=== PATIENT | male | born 1945 | race Caucasian/White ===

== ENCOUNTER 2022-04-22 21:22 | Inpatient (IN) | payer OTHER, SELFPAY ==
--- NOTE | ~2022-04-22 | XR_ITS ---
EXAMINATION: XR fl guid NG/feed tube insert DATE: 04/28/2022 14:04 INDICATION: Nasogastric tube placement required for feeding TECHNIQUE: Fluoroscopy was utilized to aid in placement of a nasogastric tube. A total of 6 fluorosco pic images recorded. The amount of fluoroscopy time used during this procedure was 3.9 minutes. 5 mm Omnipaque 350 was injected into the tube followed by 10 mL sterile saline flush with fluoroscopy conf irming appropriate positioning of the tube. The tube was then fixed to the nares by the patient's nikkie se. COMPARISON: CT dated 04/22/2022 FINDINGS: Nasogastric tube extends below the left hemidiaphragm across what appears to be a likely gastric bypa ss with the tip and injected contrast within small bowel loops in the left upper quadrant. IMPRESSION: 1. Successful placement of a nasogastric tube with tip below the left hemidiaphragm in a loop of smal l bowel likely having traversed the gastrojejunal anastomosis. Correlate with surgical history. Reviewed, dictated and finalized at location A. GER INSIDE IMPRESSION: 1. Successful placement of a nasogastric tube with tip below the left hemidiaph ragm in a loop of small bowel likely having traversed the gastrojejunal anastom osis. Correlate with surgical history.
--- NOTE | ~2022-04-22 | XR_ITS ---
EXAMINATION: XR chest 1V Exam Date/Time: 04/22/2022 22:00 MANAGER CRISIS HISTORY: fall Comparison: None available. RESULT: Patient is rotated to the left. Lines, tubes, and devices: Surgical clips over the GE junction. Lungs and pleura: No focal consolidation, pneumothorax, or large effusion. Calcified right lung gran ulomas. Cardiomediastinal silhouette: Stable. Calcified hilar nodes. Other: No acute osseous or upper abdominal finding. IMPRESSION: No acute cardiopulmonary process. Reviewed, dictated and finalized at location K. GER CRISIS
--- NOTE | ~2022-04-22 | CT_ITS ---
EXAMINATION: CT brain wo con DATE: 04/22/2022 22:25 INDICATION: fall . TECHNIQUE: Computed tomography (CT) of the head was performed without intravenous contrast. The mA wa s adjusted according to patient size. Iterative reconstruction technique was employed. The dose-lengt h product was 1513.33 mGy-cm. COMPARISON: None FINDINGS: No acute intracranial hemorrhage or extra-axial fluid collection. No hydrocephalus, mass, or herniation. No acute ischemic infarct. Unremarkable dural venous sinus attenuation. No acute osseous abnormality. The aerated spaces are clear. Mild atrophy and chronic white matter change. Atherosclerotic intracranial calcification. Tiny bilate ral lacunar infarcts. Bilateral lens replacements. IMPRESSION: No acute intracranial process. Reviewed, dictated and finalized at location K. CAL LABORATORY MANAGER
--- NOTE | ~2022-04-22 | CT_ITS ---
EXAMINATION: CT abdomen pelvis w con DATE: 04/22/2022 23:57 INDICATION: UTI. Weakness. TECHNIQUE: Computed tomography (CT) of the abdomen and pelvis was performed with 100 cc Omnipaque 350 intravenous contrast. The dose-length product was 348.13 mGy-cm. COMPARISON: CT dated 03/24/2013 FINDINGS: Lung bases are unremarkable. No significant pleural or pericardial effusion. Heart size nor mal. There is fluid-filled hyperemic bowel throughout the abdomen suspicious for enterocolitis. Heart size normal. Moderate atherosclerosis of the aorta. No aneurysm. No significant lymphadenopathy. Gal lbladder is surgically absent. There is expected prominence of the bile ducts. There are punctate hyp ovascular lesions in the dome of the liver, too small to characterize, although likely benign. The sp trav, pancreas, adrenal glands are unremarkable. There are bilateral renal cysts. No evidence for bow el obstruction. There radiation therapy implant seeds in the prostate bed. Bladder is not well disten ded for evaluation. No significant free air or free fluid. Status post hysterectomy. There is severe lumbar spondylosis. There is osteoarthritis of the hips. No focal lytic or blastic lesions. There is levoscoliosis of the lumbar spine. IMPRESSION: 1. Fluid-filled hyperemic bowel loops without obstruction. Correlate for enterocolitis. Reviewed, dictated and finalized at location A. CAL DESIGN ENGINEER IMPRESSION: 1. Fluid-filled hyperemic bowel loops without obstruction. Correlate for entero colitis.
--- NOTE | ~2022-04-22 | CT_ITS ---
EXAMINATION: CT facial & cervical spine wo DATE: 04/22/2022 22:26 INDICATION: fall TECHNIQUE: Computed tomography (CT) of the maxillofacial region and cervical spine was performed with out intravenous contrast. Automated exposure control and iterative reconstruction technique were empl oyed. The dose-length product was 119.35 mGy-cm. COMPARISON: None FINDINGS: Examination is limited by considerable difficulty positioning the patient, resulting and nonstandard planes of image acquisition. Multiple attempts were required to reformat images that better approxima te standard sagittal and coronal planes. CERVICAL: Vertebral Body Alignment: Intact. Craniocervical and atlantoaxial alignment: Mild degenerative change. Alignment intact. Osseous structures/fracture: No evidence of a lytic or blastic process in the visualized spine. No e vidence of acute fracture. Cervical soft tissues: The paraspinal soft tissues planes are maintained. Degenerative changes: Degenerative changes, without severe neural foraminal or central canal narrowin g. FACE: Soft Tissues: Question of right frontal and periorbital soft tissue swelling. Facial bones: No acute fracture. No lytic or blastic process. Eyes: The globes are intact. The soft tissue planes of the orbits are maintained. Bilateral lens re placements. Paranasal Sinuses: Small left frontal air-fluid level. Scattered minimal paranasal sinus mucosal thi ckening.. Foreign Bodies: No radiopaque foreign bodies. Other Findings: None. IMPRESSION: Limited examination, as detailed above. No definite acute fracture or traumatic malalignment in the c ervical spine. No definite acute facial bone fracture. Possible acute left frontal sinusitis versus m ucosal hemorrhage. Reviewed, dictated and finalized at location K. CTOR ECONOMIC IMPRESSION: Limited examination, as detailed above. No definite acute fracture or traumatic malalignment in the cervical spine. No definite acute facial bone fracture. Po ssible acute left frontal sinusitis versus mucosal hemorrhage.
--- NOTE | ~2022-04-22 | XR_ITS ---
XR chest 1V 04/27/2022 15:38 Indication: Aspiration Procedure: AP and lateral views of the chest Comparison: 04/22/2022 Findings: There is emphysema. There is bibasilar airspace consolidation, consistent with pneumonia. N o significant effusion. No pneumothorax. Cardiomegaly. There is atherosclerosis. There is a densely c alcified mediastinal lymph nodes, consistent with chronic granulomatous disease. Impression: 1: Interval development of bibasilar airspace disease, compatible with pneumonia. Reviewed, dictated and finalized at location A. MAKER Impression: 1: Interval development of bibasilar airspace disease, compatible with pneumoni a.
--- NOTE | ~2022-04-22 | XR_ITS ---
EXAM: XR shoulder RT min 2V DATE: 04/22/2022 22:39 HISTORY: right shoulder pain, fall . COMPARISON: 03/04/2013. FINDINGS: Normal mineralization. No fracture or dislocation. No lytic or blastic lesion. Linear ossi fied/calcified body anterior to the joint related to adjacent soft tissues or capsular tissue and not a fracture fragment. Moderate clavicular joint and glenohumeral joint osteoarthritis. Likely rotator cuff pathology. No erosion or periosteal change. Calcified hilar lymph nodes. IMPRESSION: No acute osseous finding in the right shoulder. Reviewed, dictated and finalized at location K. AL ARM SAW OPERATOR
--- NOTE | ~2022-04-22 | XR_ITS ---
EXAMINATION: XR chest 1V portable DATE: 05/04/2022 06:07 INDICATION: Pneumonia. TECHNIQUE: A single frontal view of the chest was obtained on 2 radiographs. COMPARISON: Chest single view 05/01/2022, CT abdomen and pelvis 04/22/2022 FINDINGS: A calcified right lung nodule and calcified right hilar and mediastinal lymph nodes are con sistent with old granulomatous disease. There are airspace opacities in left lower lobe. There is a t iny left apical pneumothorax. No pleural effusion. The heart size is normal. The nasogastric tube tip is beyond the inferior margin of the radiograph, but at least to the stomach. There are surgical cli ps in the area of the gastroesophageal junction. IMPRESSION: 1. New tiny left apical pneumothorax. 2. Stable airspace opacities in left lower lobe, consistent with pneumonia. Reviewed, dictated and finalized at location A. NALISM PROFESSOR
--- NOTE | ~2022-04-22 | XR_ITS ---
EXAM: XR hip BI 2V w AP pelvis DATE: 04/22/2022 22:39 HISTORY: falL APROXM. 2 DAYS AGO. ONTO RIGHT SIDE FOUND ON FLOOR . COMPARISON: None available. FINDINGS: Decreased mineralization. Lumbar degenerative disc disease Mild bilateral hip osteoarthrit is Mineralization. No fracture or dislocation. No lytic or blastic lesion. No erosion or periosteal c hange. Pelvic phleboliths. Multiple surgical clips over the lower pelvis. Vascular calcifications. IMPRESSION: No acute osseous finding in the pelvis or bilateral hips. Reviewed, dictated and finalized at location K. NICAL CUSTOMER SUPPORT SPECIALIST
--- NOTE | ~2022-04-22 | XR_ITS ---
EXAMINATION: XR chest 1V portable DATE: 05/05/2022 06:34 INDICATION: Shortness of breath. TECHNIQUE: A single frontal view of the chest was obtained on 2 radiographs. COMPARISON: Chest single view 05/04/2022, chest CT 05/04/2022 FINDINGS: A calcified right lung nodule and calcified mediastinal lymph nodes are consistent with old granulomatous disease. There are airspace opacities in left lower lobe. There is a small left hydrop neumothorax. The heart size is normal. The nasogastric tube tip is beyond the inferior margin of the radiograph, but at least to the stomach. IMPRESSION: 1. Stable airspace opacities in left lower lobe, consistent with pneumonia. 2. Stable small left hydropneumothorax. Reviewed, dictated and finalized at location A. TERINTELLIGENCE/HUMINT SPECIALIST
--- NOTE | ~2022-04-22 | MR_ITS ---
EXAMINATION: MR brain/brain stem wo/w con DATE: 04/24/2022 08:08 INDICATION: Status post fall. TECHNIQUE: Magnetic resonance imaging (MRI) of the brain and brainstem was performed without intraven ous contrast. Sequences included sagittal and axial T1-weighted SE, axial diffusion-weighted FS SE, a xial T2*-weighted GRE, axial T2-weighted FLAIR Propeller, and axial T2-weighted Propeller. Apparent d iffusion coefficient (ADC) maps were created. Right upper extremity weakness. COMPARISON: CT brain dated 04/22/2022. FINDINGS: No acute infarction or intracranial hemorrhage. There are scattered moderate periventricula r and subcortical white matter changes, most likely related to small vessel ischemic disease (microan giopathy). There is a chronic right lacunar infarction of the caudate nucleus. There is a chronic lef t thalamic infarct. No abnormal contrast enhancement. No focal mass or mass effect. Paranasal sinuses are unremarkable. Structures of the posterior fossa including the seventh/8th cranial nerve complexe s are normal. Midline sagittal images are unremarkable. IMPRESSION: 1. No acute intracranial abnormality. 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 3: Chronic age-related findings appear Reviewed, dictated and finalized at location A. ING MANAGER
--- NOTE | ~2022-04-22 | CT_ITS ---
EXAMINATION: CT abdomen pelvis wo con DATE: 05/05/2022 08:28 INDICATION: Abdominal pain. TECHNIQUE: Computed tomography (CT) of the abdomen and pelvis was performed without intravenous contr ast. Automated exposure control and iterative reconstruction technique were employed. The dose-length product was 498.95 mGy-cm. COMPARISON: CT abdomen and pelvis 04/22/2022, chest CT 05/04/2022 FINDINGS: There is a small left hydropneumothorax. There are airspace and interstitial opacities in l eft lower lobe with volume loss. There are dependent groundglass opacities in left upper lobe. The he art size is normal. There are coronary artery calcifications. No pericardial effusion. The liver is n ormal. There are changes of cholecystectomy. Calcifications in the spleen are consistent with old gra nulomatous disease. The pancreas and adrenal glands are normal. There are cysts in the kidneys measur ing up to 1.7 cm on the left. There is a 5 mm stone in left kidney. The nasogastric tube tip is in th e stomach. There are brachytherapy seeds in the prostate. There are no dilated loops of bowel. There is an 11 mm stone or cluster of stones in the bladder. There are no pathologically enlarged lymph nod es. There is no free intraperitoneal fluid. There are bridging endplate osteophytes at multiple level s in the spine, consistent with diffuse idiopathic skeletal hyperostosis (DISH). There is severe lumb ar spondylosis. IMPRESSION: 1. Small left hydropneumothorax, stable from 05/04/2022. 2. Airspace and groundglass opacities in left lower lobe and dependent groundglass opacities in left upper lobe with volume loss, likely a combination of atelectasis and pneumonia, stable from 2. 3. Bladder stone(s). Reviewed, dictated and finalized at location A. DENTIAL SALES CONSULTANT IMPRESSION: 1. Small left hydropneumothorax, stable from 05/04/2022. 2. Airspace and groundglass opacities in left lower lobe and dependent groundgl ass opacities in left upper lobe with volume loss, likely a combination of atel ectasis and pneumonia, stable from 05/04/2022. 3. Bladder stone(s).
--- NOTE | ~2022-04-22 | XR_ITS ---
EXAMINATION: XR chest 1V portable DATE: 05/01/2022 22:47 INDICATION: Fever. Pneumonia. TECHNIQUE: A single frontal view of the chest was obtained. COMPARISON: Chest single view 04/27/2022, CT abdomen and pelvis 04/22/2022 FINDINGS: The patient is rotated to his left. A calcified right lung nodule and calcified mediastinal lymph nodes are consistent with old granulomatous disease. There are airspace opacities in left lowe r lobe. No pleural effusion or pneumothorax. The heart size is normal. The nasogastric tube tip is be yond the inferior margin of the radiograph, but at least to the stomach. There are surgical clips elaine und the gastroesophageal junction. IMPRESSION: 1. Stable airspace opacities in left lower lobe, consistent with pneumonia. Reviewed, dictated and finalized at location A. T INSPECTOR
--- NOTE | ~2022-04-22 | CT_ITS ---
CT Scan of the Chest without Contrast: Clinical Indication: Pneumothorax Technique: Contiguous sections were acquired throughout the chest without intravenous contrast. Dose reduction technique was used on this scan by utilizing automated exposure control and iterative recon struction technique. The dose-length product (DLP) was 176.85 mGy-cm. Findings: Calcified mediastinal and right hilar lymph nodes are present. Coronary artery calcifications are pre sent. No aortic aneurysm. No pericardial effusion. Small left hydropneumothorax is present. There is extensive consolidation of the left lower lobe with groundglass opacity in the inferior portions of the left upper lobe. There is minimal dependent grou ndglass opacity in the right lung, which is relatively hyperinflated. Images through the upper abdomen reveal 6 mm nonobstructing left renal stone. Impression: Small left hydropneumothorax. Extensive consolidation left lower lobe with groundglass opacity in the dependent left upper lobe. Fi ndings likely represent atelectasis. Correlate for pneumonia. Minimal atelectatic changes in the right lung. Reviewed, dictated and finalized at location [] OF MARKETING Impression: Small left hydropneumothorax. Extensive consolidation left lower lobe with groundglass opacity in the depende nt left upper lobe. Findings likely represent atelectasis. Correlate for pneumo beau. Minimal atelectatic changes in the right lung.
--- NOTE | ~2022-04-22 | XR_ITS ---
MODIFIED ESOPHAGRAM HISTORY: Dysphagia. Parkinson's disease. TECHNIQUE: Modified barium esophagram was performed on 04/27/2022. I administered fluoroscopy and perf ormed the exam with speech pathologist. Patient was seated for lateral fluoroscopic imaging for chelo stion of thin liquids, pudding, solids and quantified amounts, followed by thin liquids in uncontroll ed amounts. This was recorded on tape. A single fluoroscopic spot image was also recorded. The DAP fo r this procedure was 1.21 Gycm2. The amount of fluoroscopy time used during this procedure was 2.3 mi nutes. FINDINGS: Oral stage: Reduced labial seal/extension and reduced lingual movement. Pharyngeal stage: There is reduced laryngeal elevation and adduction, tongue base retraction and phar yngeal squeeze. There is both vallecular, pharyngeal wall and piriform sinus residue. There is laryng eal penetration and aspiration both during the swallowing following the swallow with backflow from th e pharynx. Cervical/esophageal stage: Adequate function. IMPRESSION: Oral and pharyngeal dysphagia with aspiration. Please correlate with speech pathologist findings and specific feeding recommendations. Reviewed, dictated and finalized at location A. SIZER IMPRESSION: Oral and pharyngeal dysphagia with aspiration. Please correlate [facility] speech pathologist findings and specific feeding recommendations.
--- NOTE | ~2022-04-22 | CT_ITS ---
EXAMINATION: CT brain wo/w con DATE: 04/27/2022 15:32 INDICATION: Lethargy and confusion. TECHNIQUE: Computed tomography (CT) of the head was performed without and with 100 cc Omnipaque 350 i ntravenous contrast. The dose-length product was 1362.00 mGy-cm. Automated exposure control and itera tive reconstruction technique were employed. COMPARISON: CT dated 04/22/2022 FINDINGS: Generalized atrophy. There are scattered mild periventricular and subcortical white matter changes, most likely related to small vessel ischemic disease (microangiopathy). Study extremely limi den by motion artifact. Small chronic bilateral lacunar infarctions. No abnormal contrast enhancement . Midline sagittal images are unremarkable. IMPRESSION: 1. No acute intracranial abnormality. 2: Small chronic lacunar infarctions. 3: Chronic age-related findings. Reviewed, dictated and finalized at location A. PPER SOFT PLASTIC
[2022-04-22 21:25] VITALS: BP 131/92; PULSE 85; RESP 19; TEMP 37.6; O2SAT 99
--- NOTE | 2022-04-22 21:31 | ECG_ITS ---
Measurements Intervals [place] Rate: 83 P: 86 VT: 199 QRS: 87 QRSD: 97 T: 82 QT: 341 QTc: 403 Interpretive Statements SINUS RHYTHM BASELINE ARTIFACT NONSPECIFIC ST & T-WAVE ABNORMALITY NO PREVIOUS ECG AVAILABLE FOR COMPARISON Electronically Signed On 04-23-2022 13:35:22 [place] by Christopher Cunningham M.D.
--- NOTE | 2022-04-22 21:47 | ED.FALL ---
HPI - Fall General Chief Complaint: Fall <Kati Landeros PA-C - Last Filed: 04/23/22 03:03> Stated Complaint: FALL, WEAKNESS, ON FLOOR 2 DAYS <Kati Landeros PA-C - Last Filed: 04/23/22 03:03> Time Seen by Provider: 04/22/22 21:30 <Kati Landeros PA-C - Last Filed: 04/23/22 03:03> Source: patient <CHECO Ji Last Filed: 04/23/22 03:03> Mode of arrival: EMS <Kati Landeros PA-C - Last Filed: 04/23/22 03:03> Limitations: no limitations <CHECO Ji Last Filed: 04/23/22 03:03> History of Present Illness HPI Narrative: This is a 76 year old male that presents to the ER after a fall yesterday. Reportedly patient's neighbor checked in on him today and he was found on the floor. He is unsure how long he has been there or if he had fallen. Patient was found to be soiled in stool and urine. He reports right shoulder pain. Otherwise he has no focal complaints. Reports generalized weakness. Denies fever, chest pain, abdominal pain, vomiting, or focal numbness. <Kati Landeros PA-C - Last Filed: 04/23/22 03:03> Related Data Home Medications: Home Medications Medication Instructions Recorded Confirmed Aquasol E (d-alpha tocopherol) 268 mg PO DAILY 04/23/22 04/23/22 aspirin 81 mg chewable tablet 81 mg PO DAILY 04/23/22 04/23/22 atorvastatin 40 mg tablet 40 mg PO DAILY 04/23/22 04/23/22 carbidopa 25 mg-levodopa 100 mg 1 tablet PO TID 04/23/22 04/23/22 tablet cholecalciferol (vitamin D3) 25 25 mcg PO DAILY 04/23/22 04/23/22 mcg (1,000 unit) tablet (Vitamin D3) coQ10 (ubiquinol) 400 mg PO DAILY 04/23/22 04/23/22 omeprazole 20 mg capsule,delayed 20 mg PO DAILY 04/23/22 04/23/22 release oxybutynin chloride 10 mg 10 mg PO DAILY 04/23/22 04/23/22 tablet,extended release 24 hr selenium-yeast 50 mcg PO DAILY 04/23/22 04/23/22 zinc 50 mg tablet 50 mg PO DAILY 04/23/22 04/23/22 <Kati Landeros PA-C - Last Filed: 04/23/22 03:03> Allergies/Adverse Reactions: Allergies Allergy/AdvReac Type Severity Reaction Status Date / Time No Known Allergies Allergy Verified 04/23/22 04:24 <Kati Landeros PA-C - Last Filed: 04/23/22 03:03> Review of Systems Review of Systems: CONSTITUTIONAL: Denies fever EYES: Reports discharge. Denies visual changes, redness ENT: Denies congestion, sore throat CARDIOVASCULAR: Denies chest pain RESPIRATORY: Denies cough or dyspnea. GASTROINTESTINAL: Denies abdominal pain, nausea, vomiting GENITOURINARY: Denies dysuria SKIN: Denies rash MUSCULOSKELETAL: Reports joint pain, and myalgia. NEUROLOGIC: Reports generalized weakness. Denies numbness <Kati Landeros PA-C - Last Filed: 04/23/22 03:03> All systems reviewed & are unremarkable except as noted in HPI and below <Kati Landeros PA-C - Last Filed: 04/23/22 03:03> [facility] Past Medical History Medical History: Medical History (Updated 04/23/22 @ 03:02 by Kristan Velasco MD) History of hyperlipidemia History of Parkinson's disease <Kati Landeros PA-C - Last Filed: 04/23/22 03:03> Social History Social History: Social History Smoking status: Never smoker <CHECO Ji Last Filed: 04/23/22 03:03> Exam Narrative: GENERAL: Elderly, thin, and in no acute distress. HEAD: Normocephalic. Dried blood around the lips EYES: PERRLA and EOMI. Right upper and lower eyelid edema without overlying erythema. Crusting noted to the right eye ENT: Nares clear, no rhinorrhea or epistaxis. Mucous membranes moist. Oropharynx without tonsillar hypertrophy exudate or other lesions. Bruising to the right side of the tongue. Bilateral TMs pearly gaytan non-bulging NECK: Supple. No adenopathy or masses. CHEST: Clear to auscultation. No respiratory distress. No wheezes rales or rhonchi HEART: Regular rate and rhythm. No murmur heard. Normal peripheral pulses. ABDOMEN: Soft, nontender,
[2022-04-22] MEDS: SODIUM CHLORIDE 0.9% IV 1,000 ML 999 ML (21:49)
--- NOTE | 2022-04-22 22:11 | PC.NURSE ---
Pt to imaging at this time.
[2022-04-22 22:15] LABS: Hematocrit 39.5 % (42.0-52.0); Hemoglobin 13.1 g/dL (14.0-18.0); Immature Platelet Fraction Pct 6.8 % (0.9-11.2); Mean Corpuscular HGB Conc 33.2 g/dl (32-36); Mean Corpuscular Hemoglobin 30.1 pg (26-34); Mean Corpuscular Volume 90.8 fl (80-100); Mean Platelet Volume 10.9 fl (7.4-10.4); Platelet Count Result 101 k/mm3 (150-375); Red Blood Count 4.35 M/mm3 (4.6-6.20); Red Cell Distribution Width 13.6 % (11.5-14.5); White Blood Count 9.4 K/mm3 (4.5-10.0)
[2022-04-22 22:23] LABS: INR 1.2; Prothrombin Time 14.3 Seconds (11.1-14.7)
[2022-04-22 22:24] LABS: Partial Thromboplastin Time 31.7 SECONDS (22.3-36.8)
[2022-04-22 22:28] LABS: Band Neutrophils Percent 16 % (0-6); Lymphocytes Absolute Manual 0.18 K/mm3 (1.1-4.5); Lymphocytes Percent Manual 2 % (18-44); Monocytes Absolute Manual 1.03 K/mm3 (0.1-0.90); Monocytes Percent Manual 11 % (3-9); Neutrophils Absolute Manual 8.17 K/mm3 (1.3-6.7); Neutrophils Percent Manual 71 % (46-73); Platelet Estimate Decreased (Adequate); Schistocytes None Seen (NORMAL); Total Cells Counted 100
[2022-04-22 22:57] LABS: Alanine Aminotransferase 64 U/L (6-50); Alkaline Phosphatase 94 U/L (38-126); Anion Gap 9 mmol/L (8-16); Aspartate Amino Transferase 126 U/L (17-59); Bilirubin,Total 1.1 mg/dL (0.2-1.3); Blood Urea Nitrogen 25 mg/dL (9-20); Calcium 8.7 mg/dL (8.4-10.2); Carbon Dioxide 22 mmol/L (22-30); Chloride 104 mmol/L (98-107); Estimated CRCL calculation 60 ml/min; Estimated Glomerular Filt Rate > 60; Glucose 125 mg/dL (65-110); Potassium 4.1 mmol/L (3.4-5.0); Sodium 135 mmol/L (137-145)
[2022-04-22 23:06] VITALS: BP 128/70; PULSE 76; RESP 18; TEMP 36.7; O2SAT 100
[2022-04-22 23:09] LABS: Creatine Kinase 5386 U/L (55-170)
[2022-04-22 23:17] LABS: Add Urine Microscopic? YES; Appearance Urine Cloudy (Clear); Bilirubin Urine 1+ (Negative); Blood Urine 3+ (Negative); Color Urine Brown (Yellow); Glucose Urine UA Negative (Negative); Ketones Urine Trace mg/dL (Negative); Leukocyte Esterase Ur Negative LEU/UL (Negative); Nitrate Urine Negative (Negative); Protein Urine 2+ mg/dL (Negative); Specific Grav Ur 1.025 (1.001-1.035); Urobilinogen Urine 0.2 mg/dL (<2.0)
[2022-04-22 23:22] LABS: Mucus Urine Heavy /lpf; RBC Urine >75 /hpf (0-2); Squamous Epithelial Cell Urine Few /hpf (Few); WBC Clumps Urine Present /HPF; WBC Urine >75 /hpf
[2022-04-22 23:53] LABS: Influenza A QL RT-PCR Negative (Negative); Influenza B QL RT-PCR Negative (Negative); SARS-CoV-2 RNA PCR Negative
[2022-04-22] MEDS: SODIUM CHLORIDE 0.9% IV 1,000 ML 999 ML IV CONT (23:54)
[2022-04-23] VITALS (11 sets, daily range): BP systolic 108–161; BP diastolic 51–92; PULSE 76–101; RESP 14–21; TEMP 36.2–36.6; O2SAT 97–100; BMI 18.0
--- NOTE | 2022-04-23 02:59 | PM.IMHP ---
H&P: HPI History of Present Illness Date/Time: 04/23/22 02:59 Chief Complaint: 76 years old male with past medical history of hyperlipidemia parkinsonism presented to the hospital with a fall patient had a fall yesterday patient lives alone patient does not know for how long he was on the ground his neighbor was checking on him and he was found him on the ground soiled with urine and stool patient also complained of shoulder pain denies head trauma CT scan of the head and the neck was negative CK was significantly elevated patient also has abnormal UA as diarrhea was reported CT scan of the abdomen was done concern for enteritis patient will be admitted to the hospital for further evaluation and treatment of fall associated with rhabdomyolysis , enteritis and UTI Review of Systems Review of Systems: Twelve system review was done negative except above PMFSH Past Medical History Medical History (Updated 04/23/22 @ 03:02 by Kristan Velasco MD) History of hyperlipidemia History of Parkinson's disease Social History Social History Smoking status: Never smoker Meds Home Medications and Allergies Home Medications Medication Instructions Recorded Confirmed Type aspirin 81 mg chewable tablet 81 mg PO DAILY 04/23/22 History atorvastatin 40 mg tablet 40 mg PO DAILY 04/23/22 History carbidopa 25 mg-levodopa 100 mg 1 tablet PO TID 04/23/22 History tablet cholecalciferol (vitamin D3) 25 25 mcg PO DAILY 04/23/22 History mcg (1,000 unit) tablet (Vitamin D3) omeprazole 20 mg capsule,delayed 20 mg PO DAILY 04/23/22 History release oxybutynin chloride 10 mg 10 mg PO DAILY 04/23/22 History tablet,extended release 24 hr zinc 50 mg tablet 50 mg PO DAILY 04/23/22 History Allergies Allergy/AdvReac Type Severity Reaction Status Date / Time NKDA Allergy Unknown Uncoded 11/11/02 14:36 NKFA Allergy Unknown Uncoded 11/11/02 14:36 Vital Signs Vital Signs - 24 hr 04/22/22 21:25 04/22/22 23:06 04/23/22 00:16 Temperature 99.7 F H 98.0 F Pulse Rate 85 76 76 Respiratory Rate 19 18 16 Blood Pressure 131/92 H 128/70 120/69 Pulse Oximetry 99 100 100 Oxygen Delivery Room Air 04/23/22 01:27 04/23/22 02:21 Temperature Pulse Rate 79 78 Respiratory Rate 16 17 Blood Pressure 132/74 129/75 Pulse Oximetry 100 100 Oxygen Delivery Exam Narrative: GENERAL: Looks dehydrated. HEAD: Normocephalic, atraumatic. NECK: Supple. No adenopathy, no masses. RESPIRATORY: Airway patent, respirations nonlabored. Clear to auscultation bilaterally, no rales, rhonchi, wheezing. CARDIOVASCULAR: Regular rate and rhythm without murmurs, rubs, or gallops. Peripheral pulses 2+ and equal bilaterally. ABDOMINAL: Soft, nontender, nondistended, no hepatosplenomegaly. Normoactive BS. MUSCULOSKELETAL: Moves all extremities. SKIN: Warm, dry, normal color. No rashes. NEURO: A&O X3. Nonfocal. PSYCHIATRIC: Appropriate mood and affect. Normal interaction. H&P: Results Labs Labs: Short CBC 04/22/22 Range/Units 22:06 WBC 9.4 (4.5-10.0) K/mm3 Hgb 13.1 L (14.0-18.0) g/dL Hct 39.5 L (42.0-52.0) % Plt Count 101 L (150-375) k/mm3 BMP 04/22/22 22:06 Sodium 135 L Potassium 4.1 Chloride 104 Carbon Dioxide 22 BUN 25 H Creatinine 0.80 Glucose 125 H Calcium 8.7 Cardiac Enzymes 04/22/22 Range/Units 22:06 Total Creatine Kinase 5386 H (55-170) U/L Liver Function 04/22/22 Range/Units 22:06 Total Bilirubin 1.1 (0.2-1.3) mg/dL AST 126 H (17-59) U/L ALT 64 H (6-50) U/L Alkaline Phosphatase 94 (38-126) U/L Albumin 4.0 (3.5-5.1) g/dL Urine 04/22/22 Range/Units 23:05 Urine Color Brown H (Yellow) Urine Appearance Cloudy H (Clear) Urine pH 5.0 (5.0-9.0) Ur Specific [place] 1.025 (1.001-1.035) Urine Protein 2+ H (Negative) mg/dL Urine Glucose (UA) Negative (Nega
--- NOTE | 2022-04-23 04:00 | ADMGEN ---
This patient, Curry Anaya, was admitted to Medical Room 245-. Patient/family oriented to hospital policies and general routines including ID bracelet, bed and alarms, visiting hours, pain management, procedures, bathroom and other care routines, personal items, smoking policy, room service/diet, and visiting hours. Information on how to activate the Rapid Response Team has been discussed. Patient/Family are encouraged to report perceived risks to care and to ask questions if they do not understand what they are told or what they should do.
[2022-04-23] MEDS: SODIUM CHLORIDE 0.9% IV 1,000 ML 125 ML IV CONT ×3 (05:24→22:30)
[2022-04-23 06:14] LABS: Hematocrit 41.5 % (42.0-52.0); Hemoglobin 13.7 g/dL (14.0-18.0); Immature Platelet Fraction Pct 6.2 % (0.9-11.2); Mean Corpuscular Hemoglobin 29.9 pg (26-34); Mean Corpuscular Volume 90.6 fl (80-100); Mean Platelet Volume 11.4 fl (7.4-10.4); Platelet Count Result 96 k/mm3 (150-375); Red Blood Count 4.58 M/mm3 (4.6-6.20); Red Cell Distribution Width 13.8 % (11.5-14.5)
[2022-04-23 06:36] LABS: Alanine Aminotransferase 66 U/L (6-50); Alkaline Phosphatase 91 U/L (38-126); Anion Gap 10 mmol/L (8-16); Aspartate Amino Transferase 169 U/L (17-59); Blood Urea Nitrogen 22 mg/dL (9-20); CRP 8.6 mg/dL (<1.0); Calcium 8.4 mg/dL (8.4-10.2); Carbon Dioxide 21 mmol/L (22-30); Chloride 105 mmol/L (98-107); Estimated CRCL calculation 52 ml/min; Estimated Glomerular Filt Rate > 60; Glucose 104 mg/dL (65-110); Potassium 3.6 mmol/L (3.4-5.0); Sodium 136 mmol/L (137-145)
[2022-04-23 06:53] LABS: Band Neutrophils Percent 8 % (0-6); Lymphocytes Absolute Manual 0.07 K/mm3 (1.1-4.5); Monocytes Absolute Manual 0.14 K/mm3 (0.1-0.90); Monocytes Percent Manual 2 % (3-9); Neutrophils Absolute Manual 6.79 K/mm3 (1.3-6.7); Neutrophils Percent Manual 89 % (46-73); Platelet Estimate Decreased (Adequate); Schistocytes None Seen (NORMAL); Total Cells Counted 100
[2022-04-23] MEDS: CARBIDOPA/LEVODOPA 25/100 MG TABLET 1 TABLET PO ×3 (09:31→16:55)
[2022-04-23] MEDS: ASPIRIN 81 MG CHEWABLE TABLET PO (09:31)
[2022-04-23] MEDS: FAMOTIDINE 20 MG TABLET PO (09:31)
[2022-04-23] MEDS: ZINC SULFATE 220 MG CAPSULE PO (09:31)
[2022-04-23] MEDS: PANTOPRAZOLE 40 MG TABLET PO (09:31)
[2022-04-23] MEDS: ATORVASTATIN 40 MG TABLET PO (09:31)
[2022-04-23] MEDS: CHOLECALCIFEROL 1,000 UNITS TABLET 1000 UNITS PO (09:31)
--- NOTE | 2022-04-23 12:01 | PM.IMPN ---
Progress Note: A&P Assessment and Plan (1) Rhabdomyolysis: Qualifiers: Rhabdomyolysis type: non-traumatic Qualified Code(s): M62.82 - Rhabdomyolysis Code(s): M62.82 - Rhabdomyolysis Status: Acute Assessment and Plan: Patient presented to the emergency department after being found on the ground for an unknown length of time. Patient was reportedly found by his neighbor and was covered in stool and urine at that time. 2/2 traumatic rhabdomyolysis On admission CK was 5386. He was given 2L IV NS in the ED. Continue IV fluids. Trend CK levels and daily chemistry to monitor renal function. AST, ALT mildly elevated and likely secondary to tissue hypoxia from acute illness. Monitor strict I/Os. Hold statin (2) Acute UTI: Code(s): N39.0 - Urinary tract infection, site not specified Status: Acute Assessment and Plan: UA on admission showed brown, cloudy urine with 3+ blood, 2+ protein, 1+ bilirubin, negative leukocytes or nitrates, greater than 75 wbc's with WBC clumps and few squamous cells. WBC 7 but with bandemia and low-grade temp 99.7? on admission. Physical exam shows mild right flank CVA tenderness. Continue IV Rocephin 1 g Q 24 hours Urine culture and blood culture pending. Will adjust antibiotics per cultures. (3) Enteritis: Code(s): K52.9 - Noninfective gastroenteritis and colitis, unspecified Status: Acute Assessment and Plan: As noted above patient was found covered in stool by his neighbor. He endorses loose stool for approximately 1 week. He denies known recent antibiotic use. CT abdomen and pelvis suggestive of enterocolitis. Probably viral gastroenteritis. Check stool culture, stool wbc's, gram stain, O&P and C diff. Continue IV fluids and supportive care. Will add Banatrol BID supplement. (4) Fall: Code(s): W19.XXXA - Unspecified fall, initial encounter Status: Acute Assessment and Plan: Cause a fall and unknown. May be secondary to acute hypovolemia secondary to volume loss with frequent loose stool as well as acute UTI. He also has a history of Parkinson's disease. He denies loss of consciousness however patient is intermittently confused. CT head negative for acute bleeding. CT head, c-spine, facial bones negative for fractures. Chest x-ray and shoulder x-ray negative for disease, dislocation or fracture Patient was covered in stool and urine when found. EEG, Echo, and brain MRI pending. PT/OT evaluation. Check orthostatic vitals daily. (5) Elevated LFTs: Code(s): R79.89 - Other specified abnormal findings of blood chemistry Status: Acute Assessment and Plan: AST 169, ALT 66, normal T bili and alk-phos. He has no complaints of abdominal pain and a prior history of elevated LFTs or liver disease. Likely secondary to tissue hypoxia from acute hypovolemia and rhabdomyolysis. Trend LFTs. If continue to be elevated will consider abdominal ultrasound. Although no liver disease noted on CT abdomen and pelvis. Hold statin. (6) History of Parkinson's disease: Code(s): Z86.69 - Personal history of other diseases of the nervous system and sense organs Status: Chronic Assessment and Plan: Chronic, continue carbidopa levodopa home dose (7) History of hyperlipidemia: Code(s): Z86.39 - Personal history of other endocrine, nutritional and metabolic disease Status: Chronic Assessment and Plan: Chronic, check lipid panel, hold statin due to elevated LFTs. Plan Code status: Full code, full contact family regarding if patient has prior advance directive Disposition: Observation, estimated length of stay 2 days Discharge destination: Patient states he will stay with his daughter or son however both are currently out of town he reports. Will consult care coordination for safe discharge disposition assistance. Time Spent With Patient Time with patient: 2
[2022-04-23 14:54] LABS: Creatine Kinase 7247 U/L (55-170)
[2022-04-23] MEDS: ACETAMINOPHEN 325 MG TABLET 650 MG PO (16:55)
[2022-04-23 19:08] LABS: Toxigenic C. Diff NEGATIVE (NEGATIVE)
[2022-04-23] MEDS: MELATONIN 3 MG TABLET PO (21:43)
[2022-04-23] MEDS: LOPERAMIDE HCL 2 MG CAPSULE PO (21:43)
[2022-04-24] VITALS (8 sets, daily range): BP systolic 113–170; BP diastolic 63–85; PULSE 79–107; RESP 12–21; TEMP 36.5–37.1; O2SAT 99–100; BMI 18.0
--- NOTE | 2022-04-24 03:04 | ECHO_ITS ---
Patient Info Name: Curry Anaya Age: 76 years : 1945 Gender: Male Ht: 73 in Wt: 136 lbs BSA: 1.77 m2 HR: 88 bpm BP: 127 / 92 mmHg Technical Quality: Fair Exam Date: 04/24/2022 1:14 PM Exam Location: [facility] Pul[facility] Exam Room: [facility] Patient Status: Inpatient Admit Date: 04/23/2022 Staff Ordering Physician: Kristan Velasco M.A., MD Pharmacy Technician Program Director: Airam Martin RCS Attending Provider: Kristan Velasco M.A., MD Referring Physician: Gregory LAMBERT; Exam Type: CA echo doppler color flow Study Info Indications - syncope Complete two-dimensional, color flow and Doppler transthoracic echocardiogram is performed. Summary 1. Complete two-dimensional, color flow and Doppler transthoracic echocardiogram is performed. 2. Left ventricular chamber dimension is normal. 3. Left ventricular systolic function is normal, estimated at 65-70%. 4. The left ventricular diastolic function is normal. 5. E/e' 9 is minimally elevated. 6. There is mild aortic valve sclerosis. 7. There is trace tricuspid valve regurgitation. 8. No pulmonary hypertension, estimated pulmonary arterial systolic pressure is 31 mmHg. 9. There is small right sided pericardial effusion. Left Ventricle E/e' 9 is minimally elevated. Left ventricular chamber dimension is normal. Left ventricular systolic function is normal, estimated at 65-70%. The left ventricular diastolic function is normal. Right Ventricle Right ventricular chamber dimension is normal. Right ventricular systolic function is normal. Left Atria Left atrial chamber dimension is normal. Right Atria Right atrial chamber dimension is normal. Aortic Valve The aortic valve is probable trileaflet. There is mild aortic valve sclerosis. There is no aortic valve stenosis. There is no aortic valve regurgitation. Pulmonic Valve There is no pulmonic regurgitation. Mitral Valve There is no mitral valve stenosis. There is no mitral valve regurgitation. Tricuspid Valve There is trace tricuspid valve regurgitation. No pulmonary hypertension, estimated pulmonary arterial systolic pressure is 31 mmHg. Pericardium/Pleural There is small right sided pericardial effusion. Inferior Vena Cava Normal inferior vena cava with >50% collapse upon inspiration consistent with normal right atrial pressure, 5 mmHg. Aorta The aortic root size at the sinus of Valsalva is normal. Left Ventricular Outflow Tract Name Value Normal LVOT 2D LVOT Diameter 2.1 cm LVOT Doppler LVOT Peak Gradient 4 mmHg LVOT Mean Gradient 2 mmHg LVOT VTI 15 cm LVOT VTI/AV VTI Ratio 1.0 LVOT Stroke Volume 52 ml LVOT CO 14.2 l/min LVOT CI 8.0 l/min/m2 Pulmonic Valve Name Value Normal
[2022-04-24 06:44] LABS: Basophils Percent Auto 0.3 % (0.2-1.2); Hematocrit 37.6 % (42.0-52.0); Hemoglobin 12.7 g/dL (14.0-18.0); Immature Granulocyte Absolute 0.02 K/mm3 (0.00-0.031); Immature Granulocyte Percent A 0.3 % (0-0.5); Lymphocytes Absolute Auto 0.28 K/mm3 (0.9-3.2); Lymphocytes Percent Auto 4.1 % (18.3-44.2); Mean Corpuscular HGB Conc 33.8 g/dl (32-36); Mean Corpuscular Hemoglobin 30.1 pg (26-34); Mean Corpuscular Volume 89.1 fl (80-100); Mean Platelet Volume 12.1 fl (7.4-10.4); Monocytes Absolute Auto 0.4 K/mm3 (0.1-0.6); Monocytes Percent Auto 6.1 % (2.6-8.5); Neutrophils Absolute Auto 6.1 K/mm3 (1.3-6.7); Neutrophils Percent Auto 89.2 % (45.5-73.1); Platelet Count Result 87 k/mm3 (150-375); Red Blood Count 4.22 M/mm3 (4.6-6.20); Red Cell Distribution Width 13.6 % (11.5-14.5); White Blood Count 6.9 K/mm3 (4.5-10.0)
[2022-04-24] MEDS: SODIUM CHLORIDE 0.9% IV 1,000 ML 125 ML IV CONT ×3 (06:44→20:01)
[2022-04-24 07:05] LABS: Alanine Aminotransferase 72 U/L (6-50); Albumin Level 3.3 g/dL (3.5-5.1); Alkaline Phosphatase 79 U/L (38-126); Anion Gap 7 mmol/L (8-16); Aspartate Amino Transferase 226 U/L (17-59); Bilirubin,Total 0.7 mg/dL (0.2-1.3); Blood Urea Nitrogen 18 mg/dL (9-20); Calcium 7.9 mg/dL (8.4-10.2); Carbon Dioxide 21 mmol/L (22-30); Chloride 105 mmol/L (98-107); Estimated CRCL calculation 52 ml/min; Estimated Glomerular Filt Rate > 60; Glucose 92 mg/dL (65-110); Potassium 3.1 mmol/L (3.4-5.0); Sodium 133 mmol/L (137-145)
[2022-04-24 07:18] LABS: Vitamin D 25 Hydroxy 44.4 ng/mL
[2022-04-24 07:24] LABS: Creatine Kinase 5732 U/L (55-170)
[2022-04-24] MEDS: CARBIDOPA/LEVODOPA 25/100 MG TABLET 1 TABLET PO ×3 (08:54→16:51)
[2022-04-24] MEDS: PANTOPRAZOLE 40 MG TABLET PO (08:55)
[2022-04-24] MEDS: ASPIRIN 81 MG CHEWABLE TABLET PO (08:55)
[2022-04-24] MEDS: ATORVASTATIN 40 MG TABLET PO (08:55)
[2022-04-24] MEDS: ZINC SULFATE 220 MG CAPSULE PO (08:55)
[2022-04-24] MEDS: CHOLECALCIFEROL 1,000 UNITS TABLET 1000 UNITS PO (08:55)
[2022-04-24 09:00] LABS: Band Neutrophils Percent 27 % (0-6); Lymphocytes Absolute Manual 0.06 K/mm3 (1.1-4.5); Monocytes Absolute Manual 0.27 K/mm3 (0.1-0.90); Monocytes Percent Manual 4 % (3-9); Neutrophils Absolute Manual 6.55 K/mm3 (1.3-6.7); Neutrophils Percent Manual 68 % (46-73); Platelet Estimate Decreased (Adequate); Total Cells Counted 100
[2022-04-24 09:01] LABS: Schistocytes None Seen (NORMAL)
--- NOTE | 2022-04-24 09:18 | PM.IMPN ---
Progress Note: A&P Assessment and Plan (1) Rhabdomyolysis: Qualifiers: Rhabdomyolysis type: non-traumatic Qualified Code(s): M62.82 - Rhabdomyolysis Code(s): M62.82 - Rhabdomyolysis Status: Acute Assessment and Plan: Patient presented to the emergency department after being found on the ground for an unknown length of time. Patient was reportedly found by his neighbor and was covered in stool and urine at that time. 2/2 traumatic rhabdomyolysis On admission CK was 5386. He was given 2L IV NS in the ED. Trend CK levels and daily chemistry to monitor renal function LFTs slightly increased. Abd US negative for liver disease. AST, ALT mildly elevated and likely secondary to tissue hypoxia from acute illness. CK 5382 to 7247 to 5739. Trend CK daily. Continue IV fluids. Monitor strict I/Os. Renal function stable. Hold statin (2) Acute UTI: Code(s): N39.0 - Urinary tract infection, site not specified Status: Acute Assessment and Plan: UA on admission showed brown, cloudy urine with 3+ blood, 2+ protein, 1+ bilirubin, negative leukocytes or nitrates, greater than 75 wbc's with WBC clumps and few squamous cells. WBC 7 but with bandemia and low-grade temp 99.7? on admission. Physical exam shows mild right flank CVA tenderness. Continue IV Rocephin 1 g Q 24 hours Urine culture and blood culture pending. Will adjust antibiotics per cultures. (3) Enteritis: Code(s): K52.9 - Noninfective gastroenteritis and colitis, unspecified Status: Acute Assessment and Plan: As noted above patient was found covered in stool by his neighbor. He endorses loose stool for approximately 1 week. He denies known recent antibiotic use. CT abdomen and pelvis suggestive of enterocolitis. Probably viral gastroenteritis. Check stool culture, stool wbc's, gram stain, O&P pending. C diff.negative Continue IV fluids and supportive care. Continue Banatrol BID supplement. (4) Fall: Qualifiers: Encounter type: initial encounter Qualified Code(s): W19.XXXA - Unspecified fall, initial encounter Code(s): W19.XXXA - Unspecified fall, initial encounter Status: Acute Assessment and Plan: Cause a fall and unknown. May be secondary to acute hypovolemia secondary to volume loss with frequent loose stool as well as acute UTI. He also has a history of Parkinson's disease. He denies loss of consciousness however patient is intermittently confused. CT head negative for acute bleeding. CT head, c-spine, facial bones negative for fractures. Chest x-ray and shoulder x-ray negative for disease, dislocation or fracture Patient was covered in stool and urine when found. EEG, Echo, and brain MRI pending. PT/OT evaluation. Check orthostatic vitals daily. (5) Elevated LFTs: Code(s): R79.89 - Other specified abnormal findings of blood chemistry Status: Acute Assessment and Plan: AST 169, ALT 66, normal T bili and alk-phos. He has no complaints of abdominal pain and a prior history of elevated LFTs or liver disease. Likely secondary to tissue hypoxia from acute hypovolemia and rhabdomyolysis. Trend LFTs. If continue to be elevated will consider abdominal ultrasound. Although no liver disease noted on CT abdomen and pelvis. Hold statin. (6) History of Parkinson's disease: Code(s): Z86.69 - Personal history of other diseases of the nervous system and sense organs Status: Chronic Assessment and Plan: Chronic, continue carbidopa levodopa home dose (7) History of hyperlipidemia: Code(s): Z86.39 - Personal history of other endocrine, nutritional and metabolic disease Status: Chronic Assessment and Plan: Chronic, check lipid panel, hold statin due to elevated LFTs. (8) Stroke: Qualifiers: CVA mechanism: unspecified Qualified Code(s): I63.9 - Cerebral infarction, unspecified Code(s
[2022-04-24 10:00] LABS: Cholesterol 106 mg/dL (0-200); HDL Direct 46 mg/dL; Triglycerides 113 mg/dL (<150)
[2022-04-24 10:44] LABS: LDL Cholesterol Direct < 30 mg/dL
--- NOTE | 2022-04-24 11:41 | WPDNEUROLOGY ---
Neurology EEG Report General Information Date of Study: 04/24/22 TEST Routine EEG DIAGNOSIS Concern for seizure CONDITION OF RECORDING Drowsy EEG NUMBER [id number] CLINICAL HISTORY Patient unable to give any history. Patient's neck and shoulder hurt so he was unable to tolerate neck roll, recording cut short. EEG DESCRIPTION Patient did not wake fully during the recording. There is no well-defined posterior dominant rhythm. The recording is continuous. There is a well developed anterior-posterior gradient. No significant asymmetries of background activities are noted. The background consists of mostly theta range activity with occasional delta range activity. No sleep architecture is noted. There are no epileptiform discharges or seizures during this recording. Hyperventilation and photic stimulation were not performed. IMPRESSION This is a limited study due to lack of awake state and shortened recording. The EEG captured mostly drowsy state, without any evidence of sleep architecture. No epileptiform features or electrographic seizures noted. Clinical correlation recommended.
[2022-04-24] MEDS: POTASSIUM CHLORIDE 20 MEQ PACKET (FOR LIQUID) 40 MEQ PO (12:01)
[2022-04-24 13:30] LABS: Folic Acid 8.1 ng/mL (2.76->20); Vitamin B12 > 1000.0 pg/mL (239-931)
[2022-04-25] VITALS (16 sets, daily range): BP systolic 78–124; BP diastolic 48–65; PULSE 72–99; RESP 18–20; TEMP 36.4–36.7; O2SAT 94–100
[2022-04-25] MEDS: SODIUM CHLORIDE 0.9% IV 1,000 ML 125 ML IV CONT ×3 (04:33→22:14)
[2022-04-25 06:02] LABS: Hematocrit 37.6 % (42.0-52.0); Hemoglobin 12.6 g/dL (14.0-18.0); Immature Platelet Fraction Pct 6.9 % (0.9-11.2); Mean Corpuscular HGB Conc 33.5 g/dl (32-36); Mean Corpuscular Hemoglobin 29.6 pg (26-34); Mean Corpuscular Volume 88.3 fl (80-100); Mean Platelet Volume 11.9 fl (7.4-10.4); Platelet Count Result 87 k/mm3 (150-375); Red Blood Count 4.26 M/mm3 (4.6-6.20); Red Cell Distribution Width 13.6 % (11.5-14.5); White Blood Count 7.6 K/mm3 (4.5-10.0)
[2022-04-25 06:23] LABS: Alanine Aminotransferase 59 U/L (6-50); Alkaline Phosphatase 74 U/L (38-126); Anion Gap 8 mmol/L (8-16); Aspartate Amino Transferase 204 U/L (17-59); Bilirubin,Total 0.6 mg/dL (0.2-1.3); Blood Urea Nitrogen 14 mg/dL (9-20); Calcium 7.8 mg/dL (8.4-10.2); Carbon Dioxide 19 mmol/L (22-30); Chloride 110 mmol/L (98-107); Creatine Kinase 3177 U/L (55-170); Estimated CRCL calculation 58 ml/min; Estimated Glomerular Filt Rate > 60; Glucose 91 mg/dL (65-110); Potassium 3.4 mmol/L (3.4-5.0); Sodium 137 mmol/L (137-145)
[2022-04-25] MEDS: CHOLECALCIFEROL 1,000 UNITS TABLET 1000 UNITS PO (09:26)
[2022-04-25] MEDS: PANTOPRAZOLE 40 MG TABLET PO (09:26)
[2022-04-25] MEDS: ZINC SULFATE 220 MG CAPSULE PO (09:26)
[2022-04-25] MEDS: ATORVASTATIN 40 MG TABLET PO (09:26)
[2022-04-25] MEDS: ASPIRIN 81 MG CHEWABLE TABLET PO (09:26)
[2022-04-25] MEDS: CARBIDOPA/LEVODOPA 25/100 MG TABLET 1 TABLET PO ×3 (09:26→17:42)
[2022-04-25] MEDS: ACETAMINOPHEN 325 MG TABLET 650 MG PO (11:21)
[2022-04-25] MEDS: SODIUM CHLORIDE 0.9% IV 500 ML IV CONT (11:46)
[2022-04-25] MEDS: LIDOCAINE 5% PATCH 1 PATCH TRANSDERM (13:43)
--- NOTE | 2022-04-25 14:40 | P.PNIM_ITS ---
Progress Note: A&P Assessment and Plan (1) Rhabdomyolysis: Qualifiers: Rhabdomyolysis type: non-traumatic Qualified Code(s): M62.82 - Rhabdomyolysis Code(s): M62.82 - Rhabdomyolysis Status: Acute Assessment and Plan: Patient presented to the emergency department after being found on the ground fo r an unknown length of time. Patient was reportedly found by his neighbor and was covered in stool and urine at that time. 2/2 traumatic rhabdomyolysis * On admission CK was 5386. He was given 2L IV NS in the ED. * Trend CK levels and daily chemistry to monitor renal function * LFTs slightly increased. Abd US negative for liver disease. AST, ALT mildly elevated and likely secondary to tissue hypoxia from acute illness. * CK 5382 to 7247 to 5739 to 3177. Trend CK daily. * Continue IV fluids. * Monitor strict I/Os. * Renal function stable. * Hold statin. Resume when LFTs improved. (2) Acute UTI: Code(s): N39.0 - Urinary tract infection, site not specified Status: Acute Assessment and Plan: UA on admission showed brown, cloudy urine with 3+ blood, 2+ protein, 1+ bilirubin, negative leukocytes or nitrates, greater than 75 wbc's with WBC cl umps and few squamous cells. WBC 7 but with bandemia and low-grade temp 99.7? on admission. Physical exam shows mild right flank CVA tenderness. * treated with IV Rocephin 1 g Q 24 hours 12/-12/6 * Urine culture and blood culture negative. Antibiotics stopped. (3) Enteritis: Code(s): K52.9 - Noninfective gastroenteritis and colitis, unspecified Status: Acute Assessment and Plan: As noted above patient was found covered in stool by his neighbor. He endorses loose stool for approximately 1 week. He denies known recent antibiotic use. * CT abdomen and pelvis suggestive of enterocolitis. Probably viral gastroenteritis. * Check stool culture, stool wbc's, gram stain, O&P pending. * C diff.negative * Continue IV fluids and supportive care. * Continue Banatrol BID supplement. (4) Fall: Qualifiers: Encounter type: initial encounter Qualified Code(s): W19.XXXA - Unspecified fall, initial encounter Code(s): W19.XXXA - Unspecified fall, initial encounter Status: Acute Assessment and Plan: Cause a fall and unknown. May be secondary to acute hypovolemia secondary to volume loss with frequent loose stool as well as acute UTI. He also has a history of Parkinson's disease. He denies loss of consciousness however patient is intermittently confused. * CT head negative for acute bleeding. * CT head, c-spine, facial bones negative for fractures. * Chest x-ray and shoulder x-ray negative for disease, dislocation or fracture * Patient was covered in stool and urine when found. * EEG negative, * Echo- unremarkable, and * brain MRI with chronic strokes. * PT/OT evaluation. * Check orthostatic vitals daily- orthostatics positive / and given 500 cc bolus. Repeat ortho vitals slightly improved, but still dropping SBP 70s while standing. may be autonomic dysfunction from Parkinson's disease. (5) Elevated LFTs: Code(s): R79.89 - Other specified abnormal findings of blood chemistry Status: Acute Assessment and Plan: AST 169, ALT 66, normal T bili and alk-phos. He has no complaints of abdominal pain and a prior history of elevated LFTs or liver disease. * Likely secondary to tissue hypoxia from acute hypovolemia and rhabdomyolysis. * Trend LFTs. If continue to be elevated will consider abdominal ultrasound. Although no liver disease noted on CT abdomen and p
--- NOTE | 2022-04-25 14:40 | PM.IMPN ---
Progress Note: A&P Assessment and Plan (1) Rhabdomyolysis: Qualifiers: Rhabdomyolysis type: non-traumatic Qualified Code(s): M62.82 - Rhabdomyolysis Code(s): M62.82 - Rhabdomyolysis Status: Acute Assessment and Plan: Patient presented to the emergency department after being found on the ground for an unknown length of time. Patient was reportedly found by his neighbor and was covered in stool and urine at that time. 2/2 traumatic rhabdomyolysis On admission CK was 5386. He was given 2L IV NS in the ED. Trend CK levels and daily chemistry to monitor renal function LFTs slightly increased. Abd US negative for liver disease. AST, ALT mildly elevated and likely secondary to tissue hypoxia from acute illness. CK 5382 to 7247 to 5739 to 3177. Trend CK daily. Continue IV fluids. Monitor strict I/Os. Renal function stable. Hold statin. Resume when LFTs improved. (2) Acute UTI: Code(s): N39.0 - Urinary tract infection, site not specified Status: Acute Assessment and Plan: UA on admission showed brown, cloudy urine with 3+ blood, 2+ protein, 1+ bilirubin, negative leukocytes or nitrates, greater than 75 wbc's with WBC clumps and few squamous cells. WBC 7 but with bandemia and low-grade temp 99.7? on admission. Physical exam shows mild right flank CVA tenderness. treated with IV Rocephin 1 g Q 24 hours 12/-12/ Urine culture and blood culture negative. Antibiotics stopped. (3) Enteritis: Code(s): K52.9 - Noninfective gastroenteritis and colitis, unspecified Status: Acute Assessment and Plan: As noted above patient was found covered in stool by his neighbor. He endorses loose stool for approximately 1 week. He denies known recent antibiotic use. CT abdomen and pelvis suggestive of enterocolitis. Probably viral gastroenteritis. Check stool culture, stool wbc's, gram stain, O&P pending. C diff.negative Continue IV fluids and supportive care. Continue Banatrol BID supplement. (4) Fall: Qualifiers: Encounter type: initial encounter Qualified Code(s): W19.XXXA - Unspecified fall, initial encounter Code(s): W19.XXXA - Unspecified fall, initial encounter Status: Acute Assessment and Plan: Cause a fall and unknown. May be secondary to acute hypovolemia secondary to volume loss with frequent loose stool as well as acute UTI. He also has a history of Parkinson's disease. He denies loss of consciousness however patient is intermittently confused. CT head negative for acute bleeding. CT head, c-spine, facial bones negative for fractures. Chest x-ray and shoulder x-ray negative for disease, dislocation or fracture Patient was covered in stool and urine when found. EEG negative, Echo- unremarkable, and brain MRI with chronic strokes. PT/OT evaluation. Check orthostatic vitals daily- orthostatics positive 04/25 and given 500 cc bolus. Repeat ortho vitals slightly improved, but still dropping SBP 70s while standing. may be autonomic dysfunction from Parkinson's disease. (5) Elevated LFTs: Code(s): R79.89 - Other specified abnormal findings of blood chemistry Status: Acute Assessment and Plan: AST 169, ALT 66, normal T bili and alk-phos. He has no complaints of abdominal pain and a prior history of elevated LFTs or liver disease. Likely secondary to tissue hypoxia from acute hypovolemia and rhabdomyolysis. Trend LFTs. If continue to be elevated will consider abdominal ultrasound. Although no liver disease noted on CT abdomen and pelvis. LFTs improving Hold statin. (6) History of Parkinson's disease: Code(s): Z86.69 - Personal history of other diseases of the nervous system and sense organs Status: Chronic Assessment and Plan: Chronic, continue carbidopa levodopa home dose Orthostatics positive. Patient is on IV fluids since admission for rhabdomyolysis. September
[2022-04-25] MEDS: MIDODRINE HCL 2.5 MG TABLET 5 MG PO (17:42)
[2022-04-26] VITALS (12 sets, daily range): BP systolic 111–145; BP diastolic 50–76; PULSE 80–91; RESP 16–87; TEMP 36.4–37; O2SAT 95–98
[2022-04-26] MEDS: SODIUM CHLORIDE 0.9% IV 1,000 ML 125 ML IV CONT ×3 (06:19→22:23)
[2022-04-26 06:32] LABS: Hematocrit 33.5 % (42.0-52.0); Hemoglobin 11.4 g/dL (14.0-18.0); Immature Platelet Fraction Pct 7.1 % (0.9-11.2); Mean Corpuscular Hemoglobin 30.4 pg (26-34); Mean Corpuscular Volume 89.3 fl (80-100); Mean Platelet Volume 12.2 fl (7.4-10.4); Platelet Count Result 87 k/mm3 (150-375); Red Blood Count 3.75 M/mm3 (4.6-6.20); Red Cell Distribution Width 13.9 % (11.5-14.5); White Blood Count 9.5 K/mm3 (4.5-10.0)
[2022-04-26 06:42] LABS: Alanine Aminotransferase 59 U/L (6-50); Albumin Level 2.7 g/dL (3.5-5.1); Alkaline Phosphatase 70 U/L (38-126); Anion Gap 3 mmol/L (8-16); Aspartate Amino Transferase 141 U/L (17-59); Bilirubin,Total 0.4 mg/dL (0.2-1.3); Blood Urea Nitrogen 13 mg/dL (9-20); Calcium 7.5 mg/dL (8.4-10.2); Carbon Dioxide 23 mmol/L (22-30); Chloride 109 mmol/L (98-107); Creatine Kinase 1296 U/L (55-170); Estimated CRCL calculation 58 ml/min; Estimated Glomerular Filt Rate > 60; Glucose 90 mg/dL (65-110); Potassium 3.2 mmol/L (3.4-5.0); Sodium 135 mmol/L (137-145)
--- NOTE | 2022-04-26 07:27 | PM.IMPN ---
Progress Note: A&P Assessment and Plan (1) Rhabdomyolysis: Qualifiers: Rhabdomyolysis type: non-traumatic Qualified Code(s): M62.82 - Rhabdomyolysis Code(s): M62.82 - Rhabdomyolysis Status: Acute Assessment and Plan: Patient presented to the emergency department after being found on the ground for an unknown length of time. Patient was reportedly found by his neighbor and was covered in stool and urine at that time. 2/2 traumatic rhabdomyolysis On admission CK was 5386. Trend CK levels and daily chemistry to monitor renal function LFTs slightly increased. Abd US negative for liver disease. AST, ALT mildly elevated and likely secondary to tissue hypoxia from acute illness. CK 5382 to 7247 to 5739 to 3177 to 1296. Trend CK daily. Continue IV fluids. Monitor strict I/Os. Renal function stable. 40 mEq testing given due to and potassium being 3.2. Will recheck tomorrow. Hold statin. Resume when LFTs improved. -- AST and ALT still mildly elevated at 141 and 59. Possible discharge tomorrow pending CK values. Goal under 1000. Placement at a SNF per patient's son. (2) Acute UTI: Code(s): N39.0 - Urinary tract infection, site not specified Status: Acute Assessment and Plan: Patient treated with Rocephin 04/23-04/25. Urine culture negative, antibiotics dc. (3) Enteritis: Code(s): K52.9 - Noninfective gastroenteritis and colitis, unspecified Status: Acute Assessment and Plan: As noted above patient was found covered in stool by his neighbor. He endorses loose stool for approximately 1 week. He denies known recent antibiotic use. CT abdomen and pelvis suggestive of enterocolitis. Probably viral gastroenteritis. Pt did have radiation therapy prior to ED presentation. Stool wbc's, gram stain, O&P pending. Stool culture and C diff.negative Continue IV fluids and supportive care. Continue Banatrol BID supplement. Loose stools have improved. (4) Fall: Qualifiers: Encounter type: initial encounter Qualified Code(s): W19.XXXA - Unspecified fall, initial encounter Code(s): W19.XXXA - Unspecified fall, initial encounter Status: Acute Assessment and Plan: Cause a fall and unknown. May be secondary to acute hypovolemia secondary to volume loss with frequent loose stool as well as acute UTI. He also has a history of Parkinson's disease. He denies loss of consciousness however patient is intermittently confused. CT head negative for acute bleeding. CT head, c-spine, facial bones negative for fractures. Chest x-ray and shoulder x-ray negative for disease, dislocation or fracture EEG negative, Echo- unremarkable brain MRI with chronic strokes. PT/OT evaluation. Check orthostatic vitals daily- orthostatics positive 04/25 and given 500 cc bolus. Repeat ortho vitals slightly improved, but still dropping SBP 70s while standing. may be autonomic dysfunction from Parkinson's disease. Orthostatics on 04/25 @19:59 were stable. (5) Elevated LFTs: Code(s): R79.89 - Other specified abnormal findings of blood chemistry Status: Acute Assessment and Plan: AST 169, ALT 66, normal T bili and alk-phos. He has no complaints of abdominal pain and a prior history of elevated LFTs or liver disease. Likely secondary to tissue hypoxia from acute hypovolemia and rhabdomyolysis. LFTs trending down Hold statin. (6) History of Parkinson's disease: Code(s): Z86.69 - Personal history of other diseases of the nervous system and sense organs Status: Chronic Assessment and Plan: Chronic, continue carbidopa levodopa home dose Orthostatics positive. Patient is on IV fluids since admission for rhabdomyolysis. May be secondary to autonomic dysfunction. Trial Midodrine 5 mg TID. Apply FELIPA butler. (7) History of hyperlipidemia: Code(s): Z86.39 - Personal history of other endocrine, nutritional and metabolic disease
[2022-04-26] MEDS: CARBIDOPA/LEVODOPA 25/100 MG TABLET 1 TABLET PO ×3 (09:32→16:59)
[2022-04-26] MEDS: ZINC SULFATE 220 MG CAPSULE PO (09:32)
[2022-04-26] MEDS: LIDOCAINE 5% PATCH 1 PATCH TRANSDERM (09:32)
[2022-04-26] MEDS: ASPIRIN 81 MG CHEWABLE TABLET PO (09:32)
[2022-04-26] MEDS: CHOLECALCIFEROL 1,000 UNITS TABLET 1000 UNITS PO (09:32)
[2022-04-26] MEDS: ATORVASTATIN 40 MG TABLET PO (09:33)
[2022-04-26] MEDS: MIDODRINE HCL 2.5 MG TABLET 5 MG PO ×3 (09:33→16:59)
[2022-04-26] MEDS: PANTOPRAZOLE 40 MG TABLET PO (09:33)
[2022-04-26] MEDS: POTASSIUM CHLORIDE 20 MEQ PACKET (FOR LIQUID) 40 MEQ PO (12:31)
--- NOTE | 2022-04-26 23:54 | P.PNCROSS_ITS ---
Event Note Event Note Event Note: Call received from nursing staff. Patient's stool culture came back positive f or Salmonella. He has been started on ceftriaxone 2 grams daily.
--- NOTE | 2022-04-26 23:54 | PM.EVENT ---
Event Note Event Note Event Note: Call received from nursing staff. Patient's stool culture came back positive for Salmonella. He has been started on ceftriaxone 2 grams daily.
[2022-04-27] VITALS (13 sets, daily range): BP systolic 122–162; BP diastolic 58–87; PULSE 80–102; RESP 16–22; TEMP 36.2–36.6; O2SAT 90–98
[2022-04-27] MEDS: cefTRIAXone 2 GM in SODIUM CHLORIDE 0.9% IV 100 ML 200 ML IVPB (00:56)
[2022-04-27 06:12] LABS: Hemoglobin 12.7 g/dL (14.0-18.0); Immature Platelet Fraction Pct 9.1 % (0.9-11.2); Mean Corpuscular HGB Conc 33.4 g/dl (32-36); Mean Corpuscular Hemoglobin 30.3 pg (26-34); Mean Corpuscular Volume 90.7 fl (80-100); Mean Platelet Volume 11.9 fl (7.4-10.4); Platelet Count Result 96 k/mm3 (150-375); Red Blood Count 4.19 M/mm3 (4.6-6.20); Red Cell Distribution Width 13.9 % (11.5-14.5); White Blood Count 10.5 K/mm3 (4.5-10.0)
[2022-04-27 06:24] LABS: Alanine Aminotransferase 64 U/L (6-50); Albumin Level 3.2 g/dL (3.5-5.1); Alkaline Phosphatase 82 U/L (38-126); Anion Gap -1 mmol/L (8-16); Aspartate Amino Transferase 125 U/L (17-59); Bilirubin,Total 0.8 mg/dL (0.2-1.3); Blood Urea Nitrogen 9 mg/dL (9-20); Calcium 7.8 mg/dL (8.4-10.2); Carbon Dioxide 29 mmol/L (22-30); Chloride 103 mmol/L (98-107); Creatine Kinase 885 U/L (55-170); Estimated CRCL calculation 76 ml/min; Estimated Glomerular Filt Rate > 60; Glucose 117 mg/dL (65-110); Potassium 3.4 mmol/L (3.4-5.0); Sodium 131 mmol/L (137-145)
[2022-04-27] MEDS: SODIUM CHLORIDE 0.9% IV 1,000 ML 125 ML IV CONT ×2 (06:57→20:05)
--- NOTE | 2022-04-27 07:24 | PM.IMPN ---
Progress Note: A&P Assessment and Plan (1) Rhabdomyolysis: Qualifiers: Rhabdomyolysis type: non-traumatic Qualified Code(s): M62.82 - Rhabdomyolysis Code(s): M62.82 - Rhabdomyolysis Status: Acute Assessment and Plan: Patient presented to the emergency department after being found on the ground for an unknown length of time. Patient was reportedly found by his neighbor and was covered in stool and urine at that time. 2/2 traumatic rhabdomyolysis On admission CK was 5386. Trend CK levels and daily chemistry to monitor renal function LFTs slightly increased. Abd US negative for liver disease. AST, ALT mildly elevated and likely secondary to tissue hypoxia from acute illness. CK 5382 to 7247 to 5739 to 3177 to 1296 to 885. Trend CK daily. Continue IV fluids. Monitor strict I/Os. Renal function stable. potassium today 3.4 Hold statin. Resume when LFTs improved. -- AST and ALT still mildly elevated at 125 and 64. Placement at a SNF per patient's son. (2) Acute UTI: Code(s): N39.0 - Urinary tract infection, site not specified Status: Acute Assessment and Plan: Patient treated with Rocephin 04/23-04/25. Urine culture negative, antibiotics dc. (3) Enteritis: Code(s): K52.9 - Noninfective gastroenteritis and colitis, unspecified Status: Acute Assessment and Plan: As noted above patient was found covered in stool by his neighbor. He endorses loose stool for approximately 1 week. He denies known recent antibiotic use. CT abdomen and pelvis suggestive of enterocolitis. Probably viral gastroenteritis. Pt did have radiation therapy prior to ED presentation. C. Diff Negative Stool Cutlure revealed Salmonella species; sensitivity pending. Ova and parasites pending. Continue IV fluids and supportive care. Continue Banatrol BID supplement. Loose stools have improved. (4) Fall: Qualifiers: Encounter type: initial encounter Qualified Code(s): W19.XXXA - Unspecified fall, initial encounter Code(s): W19.XXXA - Unspecified fall, initial encounter Status: Acute Assessment and Plan: Cause a fall and unknown. May be secondary to acute hypovolemia secondary to volume loss with frequent loose stool as well as acute UTI. He also has a history of Parkinson's disease. He denies loss of consciousness however patient is intermittently confused. CT head negative for acute bleeding. CT head, c-spine, facial bones negative for fractures. Chest x-ray and shoulder x-ray negative for disease, dislocation or fracture EEG negative, Echo- unremarkable brain MRI with chronic strokes. PT/OT evaluation. Check orthostatic vitals daily- orthostatics positive 04/25 and given 500 cc bolus. Repeat ortho vitals slightly improved, but still dropping SBP 70s while standing. may be autonomic dysfunction from Parkinson's disease. Orthostatics on 04/25 @19:59 were stable. Orthostatics positive on 04/27 @19:20. Recheck this morning. (5) Elevated LFTs: Code(s): R79.89 - Other specified abnormal findings of blood chemistry Status: Acute Assessment and Plan: AST 169, ALT 66, normal T bili and alk-phos. He has no complaints of abdominal pain and a prior history of elevated LFTs or liver disease. Likely secondary to tissue hypoxia from acute hypovolemia and rhabdomyolysis. LFTs trending down Hold statin. (6) History of Parkinson's disease: Code(s): Z86.69 - Personal history of other diseases of the nervous system and sense organs Status: Chronic Assessment and Plan: Chronic, continue carbidopa levodopa home dose Orthostatics positive. Patient is on IV fluids since admission for rhabdomyolysis. May be secondary to autonomic dysfunction. Trial Midodrine 5 mg TID. Apply FELIPA hose. Speech therapy evaluation due to parkinson's diagnosis. Consulted and recommended MBS. Per MBS results, recommendations include no oral intake d
--- NOTE | 2022-04-27 09:18 | PCSTNOTE ---
Please refer to the Bedside Swallow Evaluation in the EMR. Please note, silent aspiration cannot be ruled out at bedside.
[2022-04-27] MEDS: CARBIDOPA/LEVODOPA 25/100 MG TABLET 1 TABLET PO (09:20)
[2022-04-27] MEDS: LIDOCAINE 5% PATCH 1 PATCH TRANSDERM (09:20)
[2022-04-27] MEDS: CHOLECALCIFEROL 1,000 UNITS TABLET 1000 UNITS PO (09:20)
[2022-04-27] MEDS: ZINC SULFATE 220 MG CAPSULE PO (09:20)
[2022-04-27] MEDS: ASPIRIN 81 MG CHEWABLE TABLET PO (09:20)
[2022-04-27] MEDS: PANTOPRAZOLE 40 MG TABLET PO (09:21)
[2022-04-27] MEDS: ATORVASTATIN 40 MG TABLET PO (09:21)
[2022-04-27] MEDS: MIDODRINE HCL 2.5 MG TABLET 5 MG PO (09:21)
--- NOTE | 2022-04-27 11:43 | WPDNEURCNPN ---
Assessment and Plan Assessment and plan (1) History of Parkinson's disease: Code(s): Z86.69 - Personal history of other diseases of the nervous system and sense organs Status: Chronic (2) Rhabdomyolysis: Qualifiers: Rhabdomyolysis type: non-traumatic Qualified Code(s): M62.82 - Rhabdomyolysis Code(s): M62.82 - Rhabdomyolysis Status: Acute (3) Fall: Qualifiers: Encounter type: initial encounter Qualified Code(s): W19.XXXA - Unspecified fall, initial encounter Code(s): W19.XXXA - Unspecified fall, initial encounter Status: Acute (4) Enteritis: Code(s): K52.9 - Noninfective gastroenteritis and colitis, unspecified Status: Acute Plan Mr. Anaya is a 76 year old male with a history of hyperlipidemia and Parkinson's disease who presented after being found down after a fall. Etiology of fall is unknown, but could be multifactorial -- secondary to Parkinson's, hypovolemia due to diarrhea. Patient was notably orthostatic with vitals during admission, this could be autonomic dysfunction secondary to Parkinson's disease. Increasing Sinemet is unlikely to improve autonomic dysfunction, but may help motor symptoms- although Sinemet can worsen orthostatic dysfunction as well. Other consideration is diagnosis of progressive supranuclear palsy given dysphagia/dysarthria, restricted gaze, and falls, which does not respond well to Sinemet. - Trial increased Sinemet dose of 25-100mg QID, if orthostasis worsens, can reduce back to TID and will consider different dopaminergic agent Consult date: 04/27/22 Time Seen: 11:43 Reason for consult: Parkinson's Disease HPI: Curry Anaya is a 76 year old male with a history of hyperlipidemia and Parkinson's disease who was brought in after being found down by his neighbor after sustaining a fall. Patient was found on the floor when his neighbor went to check on him, covered in stool and urine. Patient denied any loss of consciousness. He did have diarrhea for about a week leading up to the day of admission. He was brought to [place] ED where he was at baseline mental status. Low grade fever was noted on arrival. CT head was negative for acute process. CT ABD was concerning for enteritis and UA concerning for UTI. CK was elevated to 5386. He was admitted for treatment of enteritis, UTI, and rhabdomyolysis. He is on statin for hyperlipidemia, which is currently being held due to rhabdomyolysis and transaminitis. He is currently on ASA 81mg daily and Sinemet 25-100mg TID. Patient has been notably orthostatic with vitals for several days, despite adequate hydration so he was started on midodrine 5mg TID. MRI brain was done which showed old R lacunar and left thalamic infarct, but no acute stroke. Routine EEG was completed, but limited due to short length of study and only captured drowsy state. Review of Systems Review of Systems: ROS unobtainable: Yes unobtainable due to medical condition and unobtainable due to mental status PMFSH Past Medical History Medical History History of hyperlipidemia History of Parkinson's disease Family History Family History Other No problems noted. Mother Lymphoma Father Heart attack Social History Social History Smoking status: Never smoker Alcohol intake: never Substance use: never Lack of Transportation: No Lack of Food: Never True Current Housing: I Have Housing Concerned About Future Housing: No Difficulty Paying Gas/Electric Bills: No Difficulty Paying for Meds: No Currently Unemployed: No Education: High School Diploma/GED Difficulty w/ Childcare or Family Care: No Spiritual care concerns: No Meds Home Medications and Allergies Home Medications Medication Instructions Recorded Confir
[2022-04-27 18:58] LABS: Appearance Urine Clear (Clear); Bilirubin Urine Negative (Negative); Blood Urine Trace-intact (Negative); Color Urine Yellow (Yellow); Glucose Urine UA Negative (Negative); Ketones Urine Trace mg/dL (Negative); Leukocyte Esterase Ur Negative LEU/UL (Negative); Nitrate Urine Negative (Negative); Protein Urine Negative (Negative); Urobilinogen Urine 0.2 mg/dL (<2.0); pH Urine 6.5 (5.0-9.0)
[2022-04-27 19:01] LABS: RBC Urine 0-2 /hpf (0-2); WBC Urine 0-3 /hpf
[2022-04-27 19:30] LABS: Add Urine Microscopic? YES
[2022-04-28] VITALS (9 sets, daily range): BP systolic 144–152; BP diastolic 75–88; PULSE 76–95; RESP 16–20; TEMP 36.1–36.7; O2SAT 96–100
[2022-04-28 06:03] LABS: Hematocrit 37.8 % (42.0-52.0); Hemoglobin 12.7 g/dL (14.0-18.0); Immature Platelet Fraction Pct 9.2 % (0.9-11.2); Mean Corpuscular HGB Conc 33.6 g/dl (32-36); Mean Corpuscular Hemoglobin 30.1 pg (26-34); Mean Corpuscular Volume 89.6 fl (80-100); Platelet Count Result 121 k/mm3 (150-375); Red Blood Count 4.22 M/mm3 (4.6-6.20); Red Cell Distribution Width 13.6 % (11.5-14.5); White Blood Count 10.4 K/mm3 (4.5-10.0)
[2022-04-28 06:12] LABS: Alanine Aminotransferase 96 U/L (6-50); Albumin Level 3.1 g/dL (3.5-5.1); Alkaline Phosphatase 84 U/L (38-126); Anion Gap 7 mmol/L (8-16); Aspartate Amino Transferase 112 U/L (17-59); Bilirubin,Total 1.1 mg/dL (0.2-1.3); Blood Urea Nitrogen 10 mg/dL (9-20); Calcium 7.8 mg/dL (8.4-10.2); Carbon Dioxide 30 mmol/L (22-30); Chloride 100 mmol/L (98-107); Creatine Kinase 550 U/L (55-170); Estimated CRCL calculation 76 ml/min; Estimated Glomerular Filt Rate > 60; Glucose 98 mg/dL (65-110); Potassium 3.1 mmol/L (3.4-5.0); Sodium 137 mmol/L (137-145)
--- NOTE | 2022-04-28 06:51 | PM.IMPN ---
Progress Note: A&P Assessment and Plan (1) Rhabdomyolysis: Qualifiers: Rhabdomyolysis type: non-traumatic Qualified Code(s): M62.82 - Rhabdomyolysis Code(s): M62.82 - Rhabdomyolysis Status: Acute Assessment and Plan: Patient presented to the emergency department after being found on the ground for an unknown length of time. Patient was reportedly found by his neighbor and was covered in stool and urine at that time. 2/2 traumatic rhabdomyolysis On admission CK was 5386. Trend CK levels and daily chemistry to monitor renal function LFTs slightly increased. Abd US negative for liver disease. AST, ALT mildly elevated and likely secondary to tissue hypoxia from acute illness. CK 5382 to 7247 to 5739 to 3177 to 1296 to 885. Trend CK daily. Continue IV fluids. Monitor strict I/Os. Renal function stable. Hold statin. Resume when LFTs improved. -- AST and ALT still mildly elevated at 125 and 64. CK today 550 and continuing to trend down. (2) Pneumonia: Code(s): J18.9 - Pneumonia, unspecified organism Status: Acute Assessment and Plan: Speech therapy evaluation due to parkinson's diagnosis. Consulted and recommended MBS. Per MBS results, recommendations include no oral intake due to silent aspirations. ST will follow. Hold p.o. medications until cleared by speech therapy Plan to repeat CXR due to aspiration. CXR Impression: interval development of bibasilar airspace disease, compatible with pneumonia patient started on Unasyn 3 g Q6 Dietary consult --dietary recommended Dobbhoff Family and patient were on board with the insertion of the NG tube. Dietary will be monitoring and following this patient. Speech therapy recommends a re-evaluation early next week. (3) Enteritis: Code(s): K52.9 - Noninfective gastroenteritis and colitis, unspecified Status: Acute Assessment and Plan: As noted above patient was found covered in stool by his neighbor. He endorses loose stool for approximately 1 week. He denies known recent antibiotic use. CT abdomen and pelvis suggestive of enterocolitis. Probably viral gastroenteritis. Pt did have radiation therapy prior to ED presentation. C. Diff Negative Stool Cutlure revealed Salmonella species; sensitivity pending. Ova and parasites pending. Continue IV fluids and supportive care. Continue Banatrol BID supplement. Loose stools have improved. Pt started on Rocephin 2 g for salmonella positive stool. Imodium in Banatrol discontinued 04/28 Rocephin dc due to resistance Unasyn started to treat both salmonella and aspiration pneumonia Patient has not had diarrhea in the past couple days. (4) Fall: Qualifiers: Encounter type: initial encounter Qualified Code(s): W19.XXXA - Unspecified fall, initial encounter Code(s): W19.XXXA - Unspecified fall, initial encounter Status: Acute Assessment and Plan: Cause a fall and unknown. May be secondary to acute hypovolemia secondary to volume loss with frequent loose stool as well as acute UTI. He also has a history of Parkinson's disease. He denies loss of consciousness however patient is intermittently confused. CT head negative for acute bleeding. CT head, c-spine, facial bones negative for fractures. Chest x-ray and shoulder x-ray negative for disease, dislocation or fracture EEG negative, Echo- unremarkable brain MRI with chronic strokes. PT/OT evaluation. Check orthostatic vitals daily- orthostatics positive 04/25 and given 500 cc bolus. Repeat ortho vitals slightly improved, but still dropping SBP 70s while standing. may be autonomic dysfunction from Parkinson's disease. Orthostatics on 04/25 @19:59 were stable. Orthostatics positive on 04/26 @19:20. Recheck this morning. Negative orthostatics on 04/27 (5) Acute UTI: Code(s): N39.0 - Urinary tract infection, site not specified Status: Acute Assessment and Plan: Griselda
--- NOTE | 2022-04-28 11:55 | WPDNEUROPN ---
Progress Note: A&P Assessment and Plan (1) History of Parkinson's disease: Code(s): Z86.69 - Personal history of other diseases of the nervous system and sense organs Status: Chronic (2) Rhabdomyolysis: Qualifiers: Rhabdomyolysis type: non-traumatic Qualified Code(s): M62.82 - Rhabdomyolysis Code(s): M62.82 - Rhabdomyolysis Status: Acute (3) Enteritis: Code(s): K52.9 - Noninfective gastroenteritis and colitis, unspecified Status: Acute (4) Pneumonia: Code(s): J18.9 - Pneumonia, unspecified organism Status: Acute (5) Fall: Qualifiers: Encounter type: initial encounter Qualified Code(s): W19.XXXA - Unspecified fall, initial encounter Code(s): W19.XXXA - Unspecified fall, initial encounter Status: Acute Plan Mr. Anaya is a 76 year old male with a history of hyperlipidemia and Parkinson's disease who presented after being found down after a fall. Etiology of fall is unknown, but could be multifactorial -- secondary to Parkinson's, hypovolemia due to diarrhea. Patient was notably orthostatic with vitals during admission, this could be autonomic dysfunction secondary to Parkinson's disease. Increasing Sinemet is unlikely to improve autonomic dysfunction, but may help motor symptoms- although Sinemet can worsen orthostatic dysfunction as well. Other consideration is diagnosis of progressive supranuclear palsy given dysphagia/dysarthria and falls, which does not respond well to Sinemet. There have been ongoing concerns regarding his mental status and overall clinical appearance, likely due to underlying illness (enteritis and pneumonia). - Sinemet is currently being held due to swallow dysfunction. Resume once able to take meds orally/enterally. Recommend trial of QID dosing at that time. Subjective Date/time seen: 04/28/22 11:55 Interval history: Curry Anaya is a 76 year old male with a history of hyperlipidemia and Parkinson's disease who was brought in after being found down by his neighbor after sustaining a fall. Patient was found on the floor when his neighbor went to check on him, covered in stool and urine. Patient denied any loss of consciousness. He did have diarrhea for about a week leading up to the day of admission. He was brought to [place] ED where he was at baseline mental status. Low grade fever was noted on arrival. CT head was negative for acute process. CT ABD was concerning for enteritis and UA concerning for UTI. CK was elevated to 5386. He was admitted for treatment of enteritis, UTI, and rhabdomyolysis. He is on statin for hyperlipidemia, which is currently being held due to rhabdomyolysis and transaminitis. Patient has been notably orthostatic with vitals for several days, despite adequate hydration so he was started on midodrine 5mg TID (currently being held with all PO meds). He was Sinemet 25-100mg TID, but it is currently being held due to patient's swallowing dysfunction. MRI brain was done which showed old R lacunar and left thalamic infarct, but no acute stroke. Routine EEG was completed, but limited due to short length of study and only captured drowsy state. Family member at beside this morning, reports patient is not at baseline and looks tired. Patient expressed to me that he was hungry. CXR showed findings concerning for aspiration pneumonia. Review of Systems Review of Systems: ROS unobtainable: Yes unobtainable due to medical condition and unobtainable due to mental status Exam Const: Other: loud upper airway noise HENMT: Mouth: Yes dry mucous membranes Eyes: Pupils: Equal, round and reactive pupils present Other: Normal vertical gaze today Resp: Other: upper airway sounds, choking on saliva Cardio: Rate: regular rate GI: GI Palp: Yes Soft to palpation Skin: General skin exam: normal color Neuro: Other: awake, but did not answer any orientation questions, PERRL, face is symmet
--- NOTE | 2022-04-28 12:58 | PCNFU ---
Nutrition Follow-Up Complete: Moderate malnutrition related to chronic loss of appetite, self feeding difficulty as evidenced by reports of -7 lb weight loss; poor intake at home; and muscle wasting and fat loss. goal: Adequate PO intake at least 75% meals. Patient unable to met goal at this time. We will continue current goal. Pt current nutrition is NPO. Nutrition recommendation: Jevity 1.2 at 20 advance by 10 ml q 4 hours to goal rate of 75 ml/hr. Last recorded weight is 62 kg. Bowel Motility:+Bm reported 04/27 Labs Reviewed:Cr 0.6,Alb 3.1,Hgb 12.7, Hct 37.8 Meds Noted:Protonix, NS Skin: WNL Additional Notes: Patient had MBS on 04/27 recommending non oral feedings. Orders for NGT tube feedings. Recommend: Jevity 1.2 at 20 ml/hr advance by 10 ml q 4 hours to goal rate of 75 ml/hr. Tube feedings at goal rate will be providing 1980 kcals/92 gms protein/1332 ml water. Flush 30 ml q 4 hours. Agree with orders at this time. Monitoring weights, intakes, labs, skin, plan of care Follow up every Sunday and Sunday.
--- NOTE | 2022-04-28 13:49 | PCPTNOTE ---
Attempted to see patient for PT, however unable due to patient out of room for testing.
[2022-04-28] MEDS: AMPICILLIN SULB 3 GM/NS 100 ML 3 GM/100 ML VIAL IVPB (16:23)
[2022-04-28] MEDS: LIDOCAINE 5% PATCH 1 PATCH TRANSDERM (16:24)
[2022-04-28] MEDS: ACETAMINOPHEN 325 MG TABLET 650 MG PO (22:52)
[2022-04-28] MEDS: MIDODRINE HCL 2.5 MG TABLET 5 MG PO (22:58)
[2022-04-28] MEDS: CARBIDOPA/LEVODOPA 25/100 MG TABLET 1 TABLET PO (22:58)
[2022-04-28] MEDS: MELATONIN 3 MG TABLET PO (22:59)
[2022-04-28 23:23] LABS: Glucose Point of Care 162 mg/dl (65-105)
[2022-04-29] VITALS (11 sets, daily range): BP systolic 97–136; BP diastolic 53–69; PULSE 69–84; RESP 12–20; TEMP 36.5–37.1; O2SAT 94–100
[2022-04-29] MEDS: AMPICILLIN SULB 3 GM/NS 100 ML 3 GM/100 ML VIAL IVPB ×4 (00:02→17:23)
--- NOTE | 2022-04-29 01:47 | PC.NURSE ---
Received pt up in the lounge chair in his room. Pt IV continuously alarming due to placement in RAC. Pt will not keep arm straight. Pt fighting and waving arm around , swinging at staff. Pt talking/ mumbles constantly. Difficult to understand pt Attempt to stand pt and take ortho vitals. Pt cannot bear weight. Pt cannot follow directions. Put into bed with 4 assists to pick pt up. Resistant to all care. oral care performed x2 while pt grabbing staff arm and squeezing it while yelling. Unable to understand pt. HOB elevated productive cough. thick creamy sputum noted on pt gown . Suction w yanker- scant amount return. New IV site started to LFA for IVF and abx. TF increased per order SCD on. incontinent of urine. Fall precautions bed alarm on
[2022-04-29 06:19] LABS: Hematocrit 34.5 % (42.0-52.0); Hemoglobin 11.6 g/dL (14.0-18.0); Mean Corpuscular HGB Conc 33.6 g/dl (32-36); Mean Corpuscular Hemoglobin 29.7 pg (26-34); Mean Corpuscular Volume 88.2 fl (80-100); Mean Platelet Volume 11.7 fl (7.4-10.4); Platelet Count Result 166 k/mm3 (150-375); Red Blood Count 3.91 M/mm3 (4.6-6.20); Red Cell Distribution Width 13.5 % (11.5-14.5); White Blood Count 10.1 K/mm3 (4.5-10.0)
[2022-04-29 06:38] LABS: Alanine Aminotransferase 48 U/L (6-50); Albumin Level 2.8 g/dL (3.5-5.1); Alkaline Phosphatase 72 U/L (38-126); Anion Gap 2 mmol/L (8-16); Aspartate Amino Transferase 78 U/L (17-59); Bilirubin,Total 0.8 mg/dL (0.2-1.3); Blood Urea Nitrogen 15 mg/dL (9-20); Calcium 7.7 mg/dL (8.4-10.2); Carbon Dioxide 33 mmol/L (22-30); Chloride 103 mmol/L (98-107); Creatine Kinase 330 U/L (55-170); Estimated CRCL calculation 76 ml/min; Estimated Glomerular Filt Rate > 60; Glucose 153 mg/dL (65-110); Potassium 3.2 mmol/L (3.4-5.0); Sodium 138 mmol/L (137-145)
[2022-04-29 06:55] LABS: Glucose Point of Care 178 mg/dl (65-105)
--- NOTE | 2022-04-29 07:03 | PM.IMPN ---
Progress Note: A&P Assessment and Plan (1) Rhabdomyolysis: Qualifiers: Rhabdomyolysis type: non-traumatic Qualified Code(s): M62.82 - Rhabdomyolysis Code(s): M62.82 - Rhabdomyolysis Status: Acute Assessment and Plan: Patient presented to the emergency department after being found on the ground for an unknown length of time. Patient was reportedly found by his neighbor and was covered in stool and urine at that time. 2/2 traumatic rhabdomyolysis On admission CK was 5386. Trend CK levels and daily chemistry to monitor renal function LFTs slightly increased. Abd US negative for liver disease. AST, ALT mildly elevated and likely secondary to tissue hypoxia from acute illness. CK 5382 on admission. Trend CK daily. Continue IV fluids. Monitor strict I/Os. Renal function stable. Hold statin. Resume when LFTs improved. -- AST 78 and ALT 48 CK today 330 and continuing to trend down. (2) Pneumonia: Code(s): J18.9 - Pneumonia, unspecified organism Status: Acute Assessment and Plan: Speech therapy evaluation due to parkinson's diagnosis. Consulted and recommended MBS. Per MBS results, recommendations include no oral intake due to silent aspirations. ST will follow. Hold p.o. medications until cleared by speech therapy Plan to repeat CXR due to aspiration. CXR Impression: interval development of bibasilar airspace disease, compatible with pneumonia patient started on Unasyn 3 g Q6 Dietary consult --dietary recommended Dobbhoff Family and patient were on board with the insertion of the NG tube. Dietary will be monitoring and following this patient. NG tube placement successful, confirmed by x-ray Phosphorus within normal limits, monitoring due to risk of refeeding syndrome. Speech therapy recommends a re-evaluation early next week. Patient's white blood cell count is trending down. 04/29 Patient's POA on vacation and scheduled to return in the next day or 2 Hospice discussion possible once POA returns to the [facility] (3) Enteritis: Code(s): K52.9 - Noninfective gastroenteritis and colitis, unspecified Status: Acute Assessment and Plan: As noted above patient was found covered in stool by his neighbor. He endorses loose stool for approximately 1 week. He denies known recent antibiotic use. CT abdomen and pelvis suggestive of enterocolitis. Pt did have radiation therapy prior to ED presentation. C. Diff Negative Stool Culture revealed Salmonella species; sensitivity to ampicillin Ova and parasites pending. Blood cultures negative Continue IV fluids and supportive care. Loose stools have improved. Pt started on Rocephin 2 g for salmonella positive stool. Imodium in Banatrol discontinued On 04/28 Rocephin dc due to resistance Unasyn started to treat both salmonella and aspiration pneumonia Patient has not had diarrhea in the past couple days. Continue treatment (4) Fall: Qualifiers: Encounter type: initial encounter Qualified Code(s): W19.XXXA - Unspecified fall, initial encounter Code(s): W19.XXXA - Unspecified fall, initial encounter Status: Acute Assessment and Plan: Cause a fall and unknown. May be secondary to acute hypovolemia secondary to volume loss with frequent loose stool as well as acute UTI. He also has a history of Parkinson's disease. He denies loss of consciousness however patient is intermittently confused. CT head negative for acute bleeding. CT head, c-spine, facial bones negative for fractures. Chest x-ray and shoulder x-ray negative for disease, dislocation or fracture EEG negative, Echo- unremarkable brain MRI with chronic strokes. PT/OT evaluation. Check orthostatic vitals daily- orthostatics positive 04/25 and given 500 cc bolus. Repeat ortho vitals slightly improved, but still dropping SBP 70s while standing. may be autonomic dysfunction from Parkinson's disease. Orthostatics on 04/25 @19:59
[2022-04-29] MEDS: KCL 40 MEQ/D5/0.9% SOD CHL 1,000 ML 100 ML IV CONT ×2 (07:53→19:03)
[2022-04-29 09:19] LABS: Phosphorus 2.7 mg/dL (2.5-4.5)
[2022-04-29 09:25] LABS: Transferrin 151 mg/dL (206-381)
[2022-04-29] MEDS: ENOXAPARIN 40 MG/0.4 ML SYRINGE SUB-Q (09:36)
[2022-04-29] MEDS: ZINC SULFATE 220 MG CAPSULE PO (09:37)
[2022-04-29] MEDS: PANTOPRAZOLE SODIUM IV 40 MG VIAL IV PUSH ×2 (09:37→20:38)
[2022-04-29] MEDS: ASPIRIN 81 MG CHEWABLE TABLET PO (09:38)
[2022-04-29] MEDS: CARBIDOPA/LEVODOPA 25/100 MG TABLET 1 TABLET PO (09:38)
[2022-04-29] MEDS: MIDODRINE HCL 2.5 MG TABLET 5 MG PO (09:38)
[2022-04-29] MEDS: CHOLECALCIFEROL 1,000 UNITS TABLET 1000 UNITS PO (09:38)
[2022-04-29] MEDS: ATORVASTATIN 40 MG TABLET PO (09:38)
[2022-04-29 10:16] LABS: Vitamin B12 > 1000.0 pg/mL (239-931)
[2022-04-29] MEDS: LIDOCAINE 5% PATCH 1 PATCH TRANSDERM (10:25)
[2022-04-29 10:39] LABS: Iron 27 ug/dL (49-181)
[2022-04-29 10:49] LABS: Percent Iron Saturation 12 % (20-50)
[2022-04-29 10:55] LABS: Folic Acid 10.5 ng/mL (2.76->20)
[2022-04-29] MEDS: CARBIDOPA/LEVODOPA 25/100 MG TABLET 1 TABLET FEED TUBE ×3 (12:25→20:38)
[2022-04-29] MEDS: MIDODRINE HCL 2.5 MG TABLET 5 MG FEED TUBE ×2 (12:25→16:39)
[2022-04-29 12:41] LABS: Glucose Point of Care 129 mg/dl (65-105)
--- NOTE | 2022-04-29 13:56 | PCSTNOTE ---
Attempted tx, patient busy with other provider. Continue plan of care.
[2022-04-29 17:10] LABS: Glucose Point of Care 136 mg/dl (65-105)
[2022-04-30] VITALS (12 sets, daily range): BP systolic 118–142; BP diastolic 50–80; PULSE 75–92; RESP 12–18; TEMP 36.6–37.6; O2SAT 94–100; BMI 11.0
[2022-04-30] MEDS: AMPICILLIN SULB 3 GM/NS 100 ML 3 GM/100 ML VIAL IVPB ×4 (00:36→17:57)
[2022-04-30 06:16] LABS: Basophils Percent Auto 0.3 % (0.2-1.2); Eosinophils Absolute Auto 0.1 K/mm3 (0-0.3); Hematocrit 36.2 % (42.0-52.0); Hemoglobin 11.9 g/dL (14.0-18.0); Immature Granulocyte Percent A 0.8 % (0-0.5); Lymphocytes Absolute Auto 0.68 K/mm3 (0.9-3.2); Lymphocytes Percent Auto 5.4 % (18.3-44.2); Mean Corpuscular HGB Conc 32.9 g/dl (32-36); Mean Corpuscular Hemoglobin 30.2 pg (26-34); Mean Corpuscular Volume 91.9 fl (80-100); Mean Platelet Volume 11.5 fl (7.4-10.4); Monocytes Absolute Auto 1.2 K/mm3 (0.1-0.6); Monocytes Percent Auto 9.1 % (2.6-8.5); Neutrophils Absolute Auto 10.5 K/mm3 (1.3-6.7); Neutrophils Percent Auto 83.4 % (45.5-73.1); Platelet Count Result 212 k/mm3 (150-375); Red Blood Count 3.94 M/mm3 (4.6-6.20); Red Cell Distribution Width 13.9 % (11.5-14.5); White Blood Count 12.6 K/mm3 (4.5-10.0)
[2022-04-30] MEDS: KCL 40 MEQ/D5/0.9% SOD CHL 1,000 ML 100 ML IV CONT (06:29)
[2022-04-30 06:39] LABS: Alanine Aminotransferase 56 U/L (6-50); Albumin Level 2.9 g/dL (3.5-5.1); Alkaline Phosphatase 70 U/L (38-126); Anion Gap 3 mmol/L (8-16); Aspartate Amino Transferase 75 U/L (17-59); Bilirubin,Total 0.6 mg/dL (0.2-1.3); Blood Urea Nitrogen 16 mg/dL (9-20); Calcium 7.8 mg/dL (8.4-10.2); Carbon Dioxide 30 mmol/L (22-30); Chloride 103 mmol/L (98-107); Estimated CRCL calculation 76 ml/min; Estimated Glomerular Filt Rate > 60; Glucose 131 mg/dL (65-110); Magnesium 2.1 mg/dL (1.6-2.3); Phosphorus 2.7 mg/dL (2.5-4.5); Sodium 136 mmol/L (137-145)
[2022-04-30 06:45] LABS: Glucose Point of Care 124 mg/dl (65-105)
--- NOTE | 2022-04-30 07:16 | PM.IMPN ---
Progress Note: A&P Assessment and Plan (1) Rhabdomyolysis: Qualifiers: Rhabdomyolysis type: non-traumatic Qualified Code(s): M62.82 - Rhabdomyolysis Code(s): M62.82 - Rhabdomyolysis Status: Acute Assessment and Plan: Patient presented to the emergency department after being found on the ground for an unknown length of time. Patient was reportedly found by his neighbor and was covered in stool and urine at that time. 2/2 traumatic rhabdomyolysis On admission CK was 5386. Trend CK levels and daily chemistry to monitor renal function LFTs slightly increased. Abd US negative for liver disease. AST, ALT mildly elevated and likely secondary to tissue hypoxia from acute illness. CK 5382 on admission. Trend CK daily. Continue IV fluids. Monitor strict I/Os. Renal function stable. Hold statin. Resume when LFTs improved. -- AST 78 and ALT 48 CK today 720 (2) Pneumonia: Code(s): J18.9 - Pneumonia, unspecified organism Status: Acute Assessment and Plan: Speech therapy evaluation due to parkinson's diagnosis. Consulted and recommended MBS. Per MBS results, recommendations include no oral intake due to silent aspirations. ST will follow. Hold p.o. medications until cleared by speech therapy Plan to repeat CXR due to aspiration. CXR Impression: interval development of bibasilar airspace disease, compatible with pneumonia patient started on Unasyn 3 g Q6 Dietary consult --dietary recommended Doticohoff Family and patient were on board with the insertion of the NG tube. Dietary will be monitoring and following this patient. NG tube placement successful, confirmed by x-ray Phosphorus within normal limits, monitoring due to risk of refeeding syndrome. Speech therapy recommends a re-evaluation tomorrow or the next day WBC slightly elevated at 12.6. Continue to monitor. (3) Enteritis: Code(s): K52.9 - Noninfective gastroenteritis and colitis, unspecified Status: Acute Assessment and Plan: As noted above patient was found covered in stool by his neighbor. He endorses loose stool for approximately 1 week. He denies known recent antibiotic use. CT abdomen and pelvis suggestive of enterocolitis. Pt did have radiation therapy prior to ED presentation. C. Diff Negative Stool Culture revealed Salmonella species; sensitivity to ampicillin Ova and parasites pending. Blood cultures negative Continue IV fluids and supportive care. Loose stools have improved. Pt started on Rocephin 2 g for salmonella positive stool. Imodium in Banatrol discontinued On 04/28 Rocephin dc due to resistance Unasyn started to treat both salmonella and aspiration pneumonia Patient has not had diarrhea in the past couple days. Continue treatment (4) Fall: Qualifiers: Encounter type: initial encounter Qualified Code(s): W19.XXXA - Unspecified fall, initial encounter Code(s): W19.XXXA - Unspecified fall, initial encounter Status: Acute Assessment and Plan: Cause a fall and unknown. May be secondary to acute hypovolemia secondary to volume loss with frequent loose stool as well as acute UTI. He also has a history of Parkinson's disease. He denies loss of consciousness however patient is intermittently confused. CT head negative for acute bleeding. CT head, c-spine, facial bones negative for fractures. Chest x-ray and shoulder x-ray negative for disease, dislocation or fracture EEG negative, Echo- unremarkable brain MRI with chronic strokes. PT/OT evaluation. Check orthostatic vitals daily- orthostatics positive 04/25 and given 500 cc bolus. Repeat ortho vitals slightly improved, but still dropping SBP 70s while standing. may be autonomic dysfunction from Parkinson's disease. Orthostatics on 04/25 @19:59 were stable. Orthostatics positive on 04/26 @19:20. Recheck this morning. Negative orthostatics on 04/27 Continue midodrine Acetaminop
[2022-04-30 07:48] LABS: Creatine Kinase 720 U/L (55-170)
[2022-04-30] MEDS: ATORVASTATIN 40 MG TABLET FEED TUBE (09:34)
[2022-04-30] MEDS: ASPIRIN 81 MG CHEWABLE TABLET FEED TUBE (09:34)
[2022-04-30] MEDS: CARBIDOPA/LEVODOPA 25/100 MG TABLET 1 TABLET FEED TUBE ×4 (09:34→22:01)
[2022-04-30] MEDS: ZINC SULFATE 220 MG CAPSULE FEED TUBE (09:35)
[2022-04-30] MEDS: CHOLECALCIFEROL 1,000 UNITS TABLET 1000 UNITS FEED TUBE (09:35)
[2022-04-30] MEDS: PANTOPRAZOLE SODIUM IV 40 MG VIAL IV PUSH ×2 (09:35→22:01)
[2022-04-30] MEDS: ENOXAPARIN 40 MG/0.4 ML SYRINGE SUB-Q (09:35)
[2022-04-30] MEDS: LIDOCAINE 5% PATCH 1 PATCH TRANSDERM (09:35)
[2022-04-30] MEDS: MIDODRINE HCL 2.5 MG TABLET 5 MG FEED TUBE ×3 (09:36→16:44)
[2022-04-30 12:56] LABS: Glucose Point of Care 142 mg/dl (65-105)
[2022-04-30 17:27] LABS: Glucose Point of Care 143 mg/dl (65-105)
[2022-05-01] VITALS (10 sets, daily range): BP systolic 114–131; BP diastolic 49–87; PULSE 78–87; RESP 16–22; TEMP 36.7–39.9; O2SAT 93–100
[2022-05-01 03:51] LABS: Glucose Point of Care 127 mg/dl (65-105)
[2022-05-01] MEDS: AMPICILLIN SULB 3 GM/NS 100 ML 3 GM/100 ML VIAL IVPB ×4 (05:38→17:09)
[2022-05-01 05:49] LABS: Hematocrit 35.1 % (42.0-52.0); Hemoglobin 11.5 g/dL (14.0-18.0); Mean Corpuscular HGB Conc 32.8 g/dl (32-36); Mean Corpuscular Hemoglobin 29.3 pg (26-34); Mean Corpuscular Volume 89.5 fl (80-100); Mean Platelet Volume 11.7 fl (7.4-10.4); Platelet Count Result 233 k/mm3 (150-375); Red Blood Count 3.92 M/mm3 (4.6-6.20); Red Cell Distribution Width 13.9 % (11.5-14.5); White Blood Count 13.6 K/mm3 (4.5-10.0)
[2022-05-01 05:56] LABS: Alanine Aminotransferase 76 U/L (6-50); Albumin Level 2.9 g/dL (3.5-5.1); Alkaline Phosphatase 71 U/L (38-126); Anion Gap 5 mmol/L (8-16); Aspartate Amino Transferase 83 U/L (17-59); Bilirubin,Total 0.8 mg/dL (0.2-1.3); Blood Urea Nitrogen 17 mg/dL (9-20); Calcium 7.6 mg/dL (8.4-10.2); Carbon Dioxide 28 mmol/L (22-30); Chloride 102 mmol/L (98-107); Creatine Kinase 483 U/L (55-170); Estimated CRCL calculation 66 ml/min; Estimated Glomerular Filt Rate > 60; Glucose 111 mg/dL (65-110); Magnesium 2.1 mg/dL (1.6-2.3); Phosphorus 2.9 mg/dL (2.5-4.5); Sodium 135 mmol/L (137-145)
--- NOTE | 2022-05-01 07:49 | PM.IMPN ---
Progress Note: A&P Assessment and Plan (1) Rhabdomyolysis: Qualifiers: Rhabdomyolysis type: non-traumatic Qualified Code(s): M62.82 - Rhabdomyolysis Code(s): M62.82 - Rhabdomyolysis Status: Acute Assessment and Plan: Patient presented to the emergency department after being found on the ground for an unknown length of time. Patient was reportedly found by his neighbor and was covered in stool and urine at that time. 2/2 traumatic rhabdomyolysis On admission CK was 5386. Trend CK levels and daily chemistry to monitor renal function LFTs slightly increased. Abd US negative for liver disease. AST, ALT mildly elevated and likely secondary to tissue hypoxia from acute illness. CK 5382 on admission. Trend CK daily. Continue IV fluids. Monitor strict I/Os. Renal function stable. Hold statin. Resume when LFTs improved. -- AST 83 and ALT 76 CK today 482 (2) Pneumonia: Code(s): J18.9 - Pneumonia, unspecified organism Status: Acute Assessment and Plan: Speech therapy evaluation due to parkinson's diagnosis. Consulted and recommended MBS. Per MBS results, recommendations include no oral intake due to silent aspirations. ST will follow. Hold p.o. medications until cleared by speech therapy Plan to repeat CXR due to aspiration. CXR Impression: interval development of bibasilar airspace disease, compatible with pneumonia patient started on Unasyn 3 g Q6 Dietary consult --dietary recommended Dobbhoff Family and patient were on board with the insertion of the NG tube. Dietary will be monitoring and following this patient. NG tube placement successful, confirmed by x-ray Phosphorus within normal limits, monitoring due to risk of refeeding syndrome. Patient re-evaluation with speech therapy today or tomorrow. White count slightly elevated. No significant change from previous days. Continue to monitor. CRP 6.4. Decreased from CRP done on 04/23/2022. (3) Enteritis: Code(s): K52.9 - Noninfective gastroenteritis and colitis, unspecified Status: Acute Assessment and Plan: As noted above patient was found covered in stool by his neighbor. He endorses loose stool for approximately 1 week. He denies known recent antibiotic use. CT abdomen and pelvis suggestive of enterocolitis. Pt did have radiation therapy prior to ED presentation. C. Diff Negative Stool Culture revealed Salmonella species; sensitivity to ampicillin Ova and parasites pending. Blood cultures negative Continue IV fluids and supportive care. Loose stools have improved. Pt started on Rocephin 2 g for salmonella positive stool. Imodium in Banatrol discontinued On 04/28 Rocephin dc due to resistance Unasyn started to treat both salmonella and aspiration pneumonia Patient has not had diarrhea in the past couple days. Continue treatment (4) Fall: Qualifiers: Encounter type: initial encounter Qualified Code(s): W19.XXXA - Unspecified fall, initial encounter Code(s): W19.XXXA - Unspecified fall, initial encounter Status: Acute Assessment and Plan: Cause a fall and unknown. May be secondary to acute hypovolemia secondary to volume loss with frequent loose stool as well as acute UTI. He also has a history of Parkinson's disease. He denies loss of consciousness however patient is intermittently confused. CT head negative for acute bleeding. CT head, c-spine, facial bones negative for fractures. Chest x-ray and shoulder x-ray negative for disease, dislocation or fracture EEG negative, Echo- unremarkable brain MRI with chronic strokes. PT/OT evaluation. Check orthostatic vitals daily- orthostatics positive 04/25 and given 500 cc bolus. Repeat ortho vitals slightly improved, but still dropping SBP 70s while standing. may be autonomic dysfunction from Parkinson's disease. Orthostatics on 04/25 @19:59 were stable. Orthostatics positive on 04/26 @19:20.
[2022-05-01 08:03] LABS: CRP 6.4 mg/dL (<1.0)
[2022-05-01] MEDS: KCL 40 MEQ/D5/0.9% SOD CHL 1,000 ML 100 ML IV CONT ×3 (08:38→22:25)
[2022-05-01] MEDS: ATORVASTATIN 40 MG TABLET FEED TUBE (08:50)
[2022-05-01] MEDS: CHOLECALCIFEROL 1,000 UNITS TABLET 1000 UNITS FEED TUBE (08:50)
[2022-05-01] MEDS: ASPIRIN 81 MG CHEWABLE TABLET FEED TUBE (08:50)
[2022-05-01] MEDS: CARBIDOPA/LEVODOPA 25/100 MG TABLET 1 TABLET FEED TUBE ×4 (08:50→22:02)
[2022-05-01] MEDS: PANTOPRAZOLE SODIUM IV 40 MG VIAL IV PUSH ×2 (08:51→22:02)
[2022-05-01] MEDS: LIDOCAINE 5% PATCH 1 PATCH TRANSDERM (08:51)
[2022-05-01] MEDS: MIDODRINE HCL 2.5 MG TABLET 5 MG FEED TUBE ×3 (08:51→16:44)
[2022-05-01] MEDS: ENOXAPARIN 40 MG/0.4 ML SYRINGE SUB-Q (08:51)
[2022-05-01] MEDS: ZINC SULFATE 220 MG CAPSULE FEED TUBE (08:51)
--- NOTE | 2022-05-01 12:07 | PCOTNOTE ---
Attempted to see patient for OT, patient unable to arouse. Patient would wake up for brief moment, open eyes, smile and was aware therapy and his daughter were in room. Patient unable to stay awake with sternal rubs or frequent cues to participate in OT. Will continue plan of care for OT.
[2022-05-01 12:20] LABS: Glucose Point of Care 132 mg/dl (65-105)
--- NOTE | 2022-05-01 13:06 | PCSTNOTE ---
Patient was essentially unresponsive/did not wake up at therapist request to participate in therapy.
[2022-05-01 16:56] LABS: Glucose Point of Care 132 mg/dl (65-105)
[2022-05-01] MEDS: ACETAMINOPHEN ELIXIR 325 MG/10.15 ML UDC 650 MG FEED TUBE (22:24)
--- NOTE | 2022-05-01 22:52 | PM.EVENT ---
Event Note Event Note Event Note: 05/01/2022 at 22:55 Nursing staff called notify me that the patient had a fever 103.8. Nursing staff also noted that the patient had fallen asleep before shift change this morning and has not really woke up. The patient grimaces to painful stimuli and flexes his arms to painful stimuli. He is not following commands. They report that this is a significant change from last night where the patient was confused but was carrying on conversations. I went to evaluate the patient is they were also concerned regarding the patient's lung sounds and is snoring respirations. A stat ABG was performed which demonstrated respiratory alkalosis. A lactic acid was obtained which was normal. Labs were reviewed including the patient's CBC and CMP from earlier in the day. Her significant findings of leukocytosis with a white count of 13.6 then had climbed from around 10, CRP of 6.4 which had improved from 8.6 and relatively stable transaminitis. Stat chest x-ray was performed which appeared similar to prior x-rays but radiologic interpretation is pending. Patient has a NG in the left [place]. His body is leaning to the left his tongue hanging to the left, pupils are equal and reactive, wounds are noted to the patient's right shoulder and right greater trochanter from prior pressure wounds, patient's head of bed is at 30? but he is listing to the left side, coarse crackles bilaterally, no tachypnea or tachycardia, 2+ bilateral radial pedal pulses. Stat UA with reflux was ordered and reviewed demonstrates no evidence of new infection, [place] catheter was applied to the strictly monitor input and output bladder scan was performed which demonstrated under 200 mL of urine. Patient's fevers likely from pneumonia however the patient may be developing a component of healthcare associated pneumonia at this point. He had not had a fever in several days. I will add IV vancomycin to cover for possible MRSA. Will consult infectious disease pharmacist for recommendations as antibiotic therapy. Will repeat viral PCRs. 30 minute spent in critical care activities. Due to a high probability of clinically significant, life threatening deterioration, the patient required my highest level of preparedness to intervene emergently and I personally spent this critical care time directly and personally managing the patient. This critical care time included obtaining a history; examining the patient; pulse oximetry; ordering and review of studies; arranging urgent treatment with development of a management plan; evaluation of patient's response to treatment; frequent reassessment; and discussions with other providers. It was exclusive of separately billable procedures and treating other patients and teaching time. Please see Assessment and Plan section and the rest of the note for further information on patient assessment and treatment.
[2022-05-01 22:55] LABS: Lactic Acid Reflex 1.2 mmol/L (0.7-2.0)
[2022-05-01 23:12] LABS: Alveolar/Arterial O2 Gradient 52.4 mmHg; Base Excess ABG 1.3 mEq/l (+/-2.0); Fractional Inspired Oxygen 21 %; HCO3 ABG 23.4 mEq/l (22.0-26.0); Oxygen Content ABG 14.2 %vol (16.0-22.0); Oxygen Saturation ABG 94.4 % (95.0-100.0); Oxyhemoglobin 91.6 % THb (90.0-100.0); PO2 ABG 62.6 mmHg (80.0-100.0); PO2 FiO2 Ratio Arterial Blood 2.98 %
[2022-05-01 23:13] LABS: pH ABG 7.525 (7.350-7.450)
[2022-05-01 23:14] LABS: Device ROOM AIR; Modified Allen's Test Pass; Site Drawn LEFT RADIAL
[2022-05-02] VITALS (11 sets, daily range): BP systolic 126–150; BP diastolic 57–74; PULSE 67–82; RESP 16–18; TEMP 36.3–38.9; O2SAT 90–94
[2022-05-02 00:37] LABS: Appearance Urine Slightly Cloudy (Clear); Bilirubin Urine Negative (Negative); Blood Urine Trace-intact (Negative); Color Urine Yellow (Yellow); Glucose Urine UA Negative (Negative); Ketones Urine Negative (Negative); Leukocyte Esterase Ur Negative LEU/UL (Negative); Nitrate Urine Negative (Negative); Protein Urine Trace mg/dL (Negative); Specific Grav Ur 1.015 (1.001-1.035); Urobilinogen Urine 0.2 mg/dL (<2.0)
[2022-05-02 00:41] LABS: Bacteria Urine Trace /hpf; Mucus Urine Rare /lpf; Squamous Epithelial Cell Urine Rare /hpf (Few)
[2022-05-02] MEDS: AMPICILLIN SULB 3 GM/NS 100 ML 3 GM/100 ML VIAL IVPB ×4 (00:43→17:57)
[2022-05-02 01:11] LABS: Add Urine Microscopic? YES
[2022-05-02 05:47] LABS: Influenza A QL RT-PCR Negative (Negative); Influenza B QL RT-PCR Negative (Negative); RSV RNA, RT-PCR Negative (Negative); SARS-CoV-2 RNA PCR Positive
[2022-05-02 06:00] LABS: Hematocrit 35.1 % (42.0-52.0); Hemoglobin 11.5 g/dL (14.0-18.0); Mean Corpuscular HGB Conc 32.8 g/dl (32-36); Mean Corpuscular Hemoglobin 30.3 pg (26-34); Mean Corpuscular Volume 92.4 fl (80-100); Mean Platelet Volume 11.4 fl (7.4-10.4); Platelet Count Result 233 k/mm3 (150-375); Red Cell Distribution Width 14.2 % (11.5-14.5); White Blood Count 19.1 K/mm3 (4.5-10.0)
[2022-05-02 06:22] LABS: Alanine Aminotransferase 91 U/L (6-50); Alkaline Phosphatase 69 U/L (38-126); Anion Gap 7 mmol/L (8-16); Aspartate Amino Transferase 148 U/L (17-59); Bilirubin,Total 0.8 mg/dL (0.2-1.3); Blood Urea Nitrogen 23 mg/dL (9-20); Calcium 7.4 mg/dL (8.4-10.2); Carbon Dioxide 24 mmol/L (22-30); Chloride 99 mmol/L (98-107); Creatine Kinase 1359 U/L (55-170); Estimated CRCL calculation 58 ml/min; Estimated Glomerular Filt Rate > 60; Glucose 129 mg/dL (65-110); Potassium 5.5 mmol/L (3.4-5.0); Sodium 130 mmol/L (137-145)
[2022-05-02 06:33] LABS: CRP 13.1 mg/dL (<1.0)
[2022-05-02 07:06] LABS: INR 1.2; Prothrombin Time 14.5 Seconds (11.1-14.7)
--- NOTE | 2022-05-02 07:47 | PM.IMPN ---
Progress Note: A&P Assessment and Plan (1) Rhabdomyolysis: Qualifiers: Rhabdomyolysis type: non-traumatic Qualified Code(s): M62.82 - Rhabdomyolysis Code(s): M62.82 - Rhabdomyolysis Status: Acute Assessment and Plan: Patient presented to the emergency department after being found on the ground for an unknown length of time. Patient was reportedly found by his neighbor and was covered in stool and urine at that time. 2/2 traumatic rhabdomyolysis On admission CK was 5386. Trend CK levels and daily chemistry to monitor renal function LFTs slightly increased. Abd US negative for liver disease. AST, ALT mildly elevated and likely secondary to tissue hypoxia from acute illness. CK 5382 on admission. Trend CK daily. Continue IV fluids. Monitor strict I/Os. Renal function stable. Hold statin. Resume when LFTs improved. -- AST 83 and ALT 76 CK today 1359 in CRP 13.1 -- to be due to COVID diagnosis 05/02/22 [facility]'s [facility] requesting [facility] and they are not not available to accept patients, currently wait list is 3 week wait. Called POA and he is considering signing out AMA. (2) Pneumonia: Code(s): J18.9 - Pneumonia, unspecified organism Status: Acute Assessment and Plan: Speech therapy evaluation due to parkinson's diagnosis. Consulted and recommended MBS. Per MBS results, recommendations include no oral intake due to silent aspirations. ST will follow. Hold p.o. medications until cleared by speech therapy Plan to repeat CXR on 04/27/2022 due to aspiration. CXR Impression: interval development of bibasilar airspace disease, compatible with pneumonia patient started on Unasyn 3 g Q6 Dietary consult --dietary recommended Bailey Family and patient were on board with the insertion of the NG tube. Dietary will be monitoring and following this patient. 04/28/2022 NG tube placement successful, confirmed by x-ray. 05/02/22 Repeat chest x-ray on 05/02/2022 revealed pneumonia and left lower lobe. Patient unable to be re-evaluated by speech due to mental status Continue IV antibiotics (3) Enteritis: Code(s): K52.9 - Noninfective gastroenteritis and colitis, unspecified Status: Acute Assessment and Plan: As noted above patient was found covered in stool by his neighbor. He endorses loose stool for approximately 1 week. He denies known recent antibiotic use. CT abdomen and pelvis suggestive of enterocolitis. Pt did have radiation therapy prior to ED presentation. C. Diff Negative Stool Culture revealed Salmonella species; sensitivity to ampicillin Ova and parasites pending. Blood cultures negative Continue IV fluids and supportive care. Loose stools have improved. Pt started on Rocephin 2 g for salmonella positive stool. Imodium in Banatrol discontinued On 04/28 Rocephin dc due to resistance Unasyn started to treat both salmonella and aspiration pneumonia Patient has had some diarrhea in the last 24 hours. Not sure if this is Salmonella or COVID related. Continue treatment (4) COVID: Code(s): U07.1 - COVID-19 Status: Acute Assessment and Plan: Patient spiked a 103.8 fever at 10:24 p.m. 05/01/2022 Patient's repeat chest x-ray revealed left lower lobe pneumonia Repeat blood cultures pending ABG revealed respiratory alkalosis Repeat urine revealed 11-20 rbc's and 4-6 wbc's-not concerning for infection Patient tested COVID positive RSV, influenza A and B negative Continue IV Tylenol as an antipyretic and analgesic Isolation precautions Telemetry Continuous pulse ox Keep O2 sats above 91%-patient currently on room air Patient started on remdesivir and family requested that remdesivir be canceled. Patient restarted on at home vitamins per family's request IV fluids held (5) Fall: Qualifiers: Encounter type: initial encounter Qualified Code(s): W19.XXXA - Unspecified f
[2022-05-02] MEDS: REMDESIVIR 200 MG/NS 250 ML 200 MG/250 ML BAG 250 MG IVPB (08:26)
[2022-05-02] MEDS: LIDOCAINE 5% PATCH 1 PATCH TRANSDERM (08:27)
[2022-05-02] MEDS: ACETAMINOPHEN ELIXIR 325 MG/10.15 ML UDC 650 MG FEED TUBE (08:27)
[2022-05-02] MEDS: ATORVASTATIN 40 MG TABLET FEED TUBE (08:28)
[2022-05-02] MEDS: ZINC SULFATE 220 MG CAPSULE FEED TUBE (08:28)
[2022-05-02] MEDS: ASPIRIN 81 MG CHEWABLE TABLET FEED TUBE (08:28)
[2022-05-02] MEDS: CARBIDOPA/LEVODOPA 25/100 MG TABLET 1 TABLET FEED TUBE ×4 (08:28→21:51)
[2022-05-02] MEDS: MIDODRINE HCL 2.5 MG TABLET 5 MG FEED TUBE ×3 (08:28→17:58)
[2022-05-02] MEDS: ENOXAPARIN 40 MG/0.4 ML SYRINGE SUB-Q (08:29)
[2022-05-02] MEDS: CHOLECALCIFEROL 1,000 UNITS TABLET 1000 UNITS FEED TUBE (08:29)
[2022-05-02] MEDS: PANTOPRAZOLE SODIUM IV 40 MG VIAL IV PUSH ×2 (08:44→21:52)
[2022-05-02 12:10] LABS: Glucose Point of Care 149 mg/dl (65-105)
[2022-05-02] MEDS: ASCORBIC ACID 500 MG TABLET 1000 MG FEED TUBE (13:01)
--- NOTE | 2022-05-02 13:30 | PCNFU ---
Nutrition Follow-Up Complete: Moderate malnutrition related to chronic loss of appetite, self feeding difficulty as evidenced by reports of -7 lb weight loss; poor intake at home; and muscle wasting and fat loss. Goal: Adequate PO intake at least 75% meals Patient is not meeting goal. New goal: Meet estimated nutritional needs. Pt current nutrition is Jevity 1.2 at 75 ml/hr. Last recorded weight is 62 kg. Bowel Motility: +Bm reported 05/02 Labs Reviewed:Glu 129,Alb 3.0,BUN 23 Meds Noted:Protonix, Vit C, Vitamin D, Zinc,Decadron Skin: WNL Additional Notes: Patient remains on NGT feedings of Jevity 1.2 at 75 ml/hr and tolerating. Tube feeding is providing 1980 kcals/92 gms protein/1332 ml water. Flush 30 ml q 4 hours. Spoke with MERVIN Corley today regarding patient nutritional status. Plans to get repeat MBS when patient is able. COVID positive at this time. Agree with diet orders. Monitoring weights, intakes, labs, skin, plan of care Follow up every Sunday and Sunday.
--- NOTE | 2022-05-02 14:23 | PCOTNOTE ---
Patient unarousable. Attempted to sternal rub to rouse patient, patient did not wake. patient unable to effectively participate in OT. Patient not seen for OT.
[2022-05-02 19:07] LABS: Glucose Point of Care 176 mg/dl (65-105)
[2022-05-03] VITALS (10 sets, daily range): BP systolic 114–144; BP diastolic 61–70; PULSE 67–83; RESP 18; TEMP 36.3–36.7; O2SAT 94–97
[2022-05-03] MEDS: AMPICILLIN SULB 3 GM/NS 100 ML 3 GM/100 ML VIAL IVPB ×4 (00:40→22:25)
[2022-05-03 06:14] LABS: Basophils Percent Auto 0.2 % (0.2-1.2); Hemoglobin 11.2 g/dL (14.0-18.0); Immature Granulocyte Absolute 0.27 K/mm3 (0.00-0.031); Immature Granulocyte Percent A 1.5 % (0-0.5); Lymphocytes Absolute Auto 0.53 K/mm3 (0.9-3.2); Lymphocytes Percent Auto 2.9 % (18.3-44.2); Mean Corpuscular HGB Conc 33.9 g/dl (32-36); Mean Corpuscular Volume 88.5 fl (80-100); Mean Platelet Volume 11.5 fl (7.4-10.4); Monocytes Percent Auto 5.4 % (2.6-8.5); Neutrophils Absolute Auto 16.5 K/mm3 (1.3-6.7); Platelet Count Result 252 k/mm3 (150-375); Red Blood Count 3.73 M/mm3 (4.6-6.20); Red Cell Distribution Width 13.9 % (11.5-14.5); White Blood Count 18.3 K/mm3 (4.5-10.0)
[2022-05-03 06:22] LABS: INR 1.2; Prothrombin Time 14.3 Seconds (11.1-14.7)
[2022-05-03 06:26] LABS: Alanine Aminotransferase 87 U/L (6-50); Alkaline Phosphatase 75 U/L (38-126); Anion Gap 3 mmol/L (8-16); Aspartate Amino Transferase 228 U/L (17-59); Bilirubin,Total 0.6 mg/dL (0.2-1.3); Blood Urea Nitrogen 26 mg/dL (9-20); Calcium 7.6 mg/dL (8.4-10.2); Carbon Dioxide 29 mmol/L (22-30); Chloride 94 mmol/L (98-107); Creatine Kinase 1257 U/L (55-170); Estimated CRCL calculation 66 ml/min; Estimated Glomerular Filt Rate > 60; Glucose 164 mg/dL (65-110); Potassium 4.6 mmol/L (3.4-5.0); Sodium 126 mmol/L (137-145)
[2022-05-03 06:38] LABS: CRP 14.7 mg/dL (<1.0)
[2022-05-03 07:22] LABS: Macrocytosis 1+ (NORMAL); Platelet Estimate Adequate (Adequate)
[2022-05-03 07:23] LABS: Acanthocytes 1+ (NORMAL); Ovalocytes 1+ (NORMAL); Schistocytes None Seen (NORMAL)
--- NOTE | 2022-05-03 08:48 | PM.IMPN ---
Progress Note: A&P Assessment and Plan (1) Rhabdomyolysis: Qualifiers: Rhabdomyolysis type: non-traumatic Qualified Code(s): M62.82 - Rhabdomyolysis Code(s): M62.82 - Rhabdomyolysis Status: Acute Assessment and Plan: Patient presented to the emergency department after being found on the ground for an unknown length of time. Patient was reportedly found by his neighbor and was covered in stool and urine at that time. 2/2 traumatic rhabdomyolysis On admission CK was 5386. Trend CK levels and daily chemistry to monitor renal function LFTs slightly increased. Abd US negative for liver disease. AST, ALT mildly elevated and likely secondary to tissue hypoxia from acute illness. CK 5382 on admission. Trend CK daily. Continue IV fluids. Monitor strict I/Os. Renal function stable. Hold statin. Resume when LFTs improved. 05/02/22 Patient's family requesting transfer to [facility]. Called [facility] transfer line and they are not not available to accept patients, currently wait list is 3 week wait. Called [facility] and he is considering signing out AMA. (2) Pneumonia: Code(s): J18.9 - Pneumonia, unspecified organism Status: Acute Assessment and Plan: Speech therapy evaluation due to parkinson's diagnosis. Consulted and recommended MBS. Per MBS results, recommendations include no oral intake due to silent aspirations. ST will follow. Hold p.o. medications until cleared by speech therapy Plan to repeat CXR on 04/27/2022 due to aspiration. CXR Impression: interval development of bibasilar airspace disease, compatible with pneumonia patient started on Unasyn 3 g Q6 Dietary consult --dietary recommended Bailey Family and patient were on board with the insertion of the NG tube. Dietary will be monitoring and following this patient. 04/28/2022 NG tube placement successful, confirmed by x-ray. 05/02/22 Repeat chest x-ray on 05/02/2022 revealed pneumonia and left lower lobe. Patient unable to be re-evaluated by speech due to mental status Continue IV antibiotics (3) Enteritis: Code(s): K52.9 - Noninfective gastroenteritis and colitis, unspecified Status: Acute Assessment and Plan: As noted above patient was found covered in stool by his neighbor. He endorses loose stool for approximately 1 week. He denies known recent antibiotic use. CT abdomen and pelvis suggestive of enterocolitis. Pt did have radiation therapy prior to ED presentation. C. Diff Negative Stool Culture revealed Salmonella species; sensitivity to ampicillin Ova and parasites pending. Blood cultures negative Continue IV fluids and supportive care. Loose stools have improved. Pt started on Rocephin 2 g for salmonella positive stool. Imodium in Banatrol discontinued On 04/28 Rocephin dc due to resistance Unasyn started to treat both salmonella and aspiration pneumonia Patient has had some diarrhea in the last 24 hours. Not sure if this is Salmonella or COVID related. Continue treatment (4) COVID: Code(s): U07.1 - COVID-19 Status: Acute Assessment and Plan: Patient spiked a 103.8 fever at 10:24 p.m. 05/01/2022 Patient's repeat chest x-ray revealed left lower lobe pneumonia Repeat blood cultures pending ABG revealed respiratory alkalosis Repeat urine revealed 11-20 rbc's and 4-6 wbc's-not concerning for infection Patient tested COVID positive RSV, influenza A and B negative Continue IV Tylenol as an antipyretic and analgesic Isolation precautions Telemetry Continuous pulse ox Keep O2 sats above 91%-patient currently on room air Patient started on remdesivir and family requested that remdesivir be canceled. Patient restarted on at home vitamins per family's request IV fluids held he is not hypoxic with his COVID. Repeat the RT PCR test Will continue Unasyn for aspiration pneumonia (5) Fall: Qualifiers: Encounter type: initial encounter Qualified Code(s):
[2022-05-03] MEDS: ENOXAPARIN 40 MG/0.4 ML SYRINGE SUB-Q (09:05)
[2022-05-03] MEDS: LIDOCAINE 5% PATCH 1 PATCH TRANSDERM (09:05)
[2022-05-03] MEDS: PANTOPRAZOLE SODIUM IV 40 MG VIAL IV PUSH ×2 (09:05→22:21)
[2022-05-03] MEDS: MIDODRINE HCL 2.5 MG TABLET 5 MG FEED TUBE ×3 (09:06→17:32)
[2022-05-03] MEDS: ATORVASTATIN 40 MG TABLET FEED TUBE (09:06)
[2022-05-03] MEDS: CARBIDOPA/LEVODOPA 25/100 MG TABLET 1 TABLET FEED TUBE ×4 (09:06→22:21)
[2022-05-03] MEDS: ASPIRIN 81 MG CHEWABLE TABLET FEED TUBE (09:06)
[2022-05-03] MEDS: ASCORBIC ACID 500 MG TABLET 1000 MG FEED TUBE (09:07)
[2022-05-03] MEDS: CHOLECALCIFEROL 1,000 UNITS TABLET 1000 UNITS FEED TUBE (09:07)
[2022-05-03] MEDS: ZINC SULFATE 220 MG CAPSULE FEED TUBE (09:07)
[2022-05-03 09:09] LABS: IFOB Positive Control Positive; Immunochemical Fecal Occult Bl Positive (N)
--- NOTE | 2022-05-03 11:40 | PCOTNOTE ---
Attempted to see patient this am, however patient refused. Pt declined activity out of bed or sitting edge of bed. Pt already completed ADLs this date per white board, and patient declined exercises.
[2022-05-03 12:36] LABS: Glucose Point of Care 176 mg/dl (65-105)
[2022-05-03] MEDS: CIPROFLOXACIN 400 MG/D5W 200ML 200 ML 200 MG IVPB (14:21)
--- NOTE | 2022-05-03 14:55 | PCPTNOTE ---
Patient refused treatment this session. Patient reported he did not want to get up to the chair, sit edge of bed, or do therapy this date. Educated patient on the importance of therapy and gave encouragement for participation, however patient continued to refuse and reported he just wants to rest today.
[2022-05-03 17:47] LABS: Glucose Point of Care 218 mg/dl (65-105)
[2022-05-04] VITALS (8 sets, daily range): BP systolic 117–141; BP diastolic 50–76; PULSE 67–87; RESP 18; TEMP 36.6–37.1; O2SAT 94; BMI 10.0
[2022-05-04 00:16] LABS: Glucose Point of Care 183 mg/dl (65-105)
[2022-05-04] MEDS: CIPROFLOXACIN 400 MG/D5W 200ML 200 ML 200 MG IVPB ×2 (01:35→13:32)
[2022-05-04] MEDS: AMPICILLIN SULB 3 GM/NS 100 ML 3 GM/100 ML VIAL IVPB ×3 (05:10→17:20)
[2022-05-04 05:51] LABS: Basophils Percent Auto 0.1 % (0.2-1.2); Hematocrit 33.8 % (42.0-52.0); Hemoglobin 11.5 g/dL (14.0-18.0); Immature Granulocyte Absolute 0.21 K/mm3 (0.00-0.031); Immature Granulocyte Percent A 1.1 % (0-0.5); Lymphocytes Absolute Auto 0.44 K/mm3 (0.9-3.2); Lymphocytes Percent Auto 2.4 % (18.3-44.2); Mean Corpuscular Hemoglobin 29.3 pg (26-34); Mean Platelet Volume 11.8 fl (7.4-10.4); Monocytes Absolute Auto 1.3 K/mm3 (0.1-0.6); Monocytes Percent Auto 6.9 % (2.6-8.5); Neutrophils Absolute Auto 16.4 K/mm3 (1.3-6.7); Neutrophils Percent Auto 89.5 % (45.5-73.1); Platelet Count Result 318 k/mm3 (150-375); Red Blood Count 3.93 M/mm3 (4.6-6.20); Red Cell Distribution Width 13.7 % (11.5-14.5); White Blood Count 18.3 K/mm3 (4.5-10.0)
[2022-05-04 05:56] LABS: INR 1.2; Prothrombin Time 14.3 Seconds (11.1-14.7)
[2022-05-04 06:05] LABS: Alanine Aminotransferase 148 U/L (6-50); Albumin Level 3.2 g/dL (3.5-5.1); Alkaline Phosphatase 89 U/L (38-126); Anion Gap 6 mmol/L (8-16); Aspartate Amino Transferase 344 U/L (17-59); Bilirubin,Total 0.8 mg/dL (0.2-1.3); Blood Urea Nitrogen 33 mg/dL (9-20); Calcium 7.7 mg/dL (8.4-10.2); Carbon Dioxide 29 mmol/L (22-30); Chloride 96 mmol/L (98-107); Estimated CRCL calculation 66 ml/min; Estimated Glomerular Filt Rate > 60; Glucose 188 mg/dL (65-110); Magnesium 2.4 mg/dL (1.6-2.3); Phosphorus 3.5 mg/dL (2.5-4.5); Potassium 4.8 mmol/L (3.4-5.0); Sodium 131 mmol/L (137-145)
[2022-05-04 06:08] LABS: Lactic Acid Reflex 1.7 mmol/L (0.7-2.0)
[2022-05-04 06:19] LABS: Glucose Point of Care 177 mg/dl (65-105)
[2022-05-04 07:41] LABS: SARS-CoV-2 RNA PCR Positive
[2022-05-04 08:36] LABS: Anisocytosis 1+ (NORMAL); Ovalocytes 1+ (NORMAL); Platelet Estimate Adequate (Adequate); Poikilocytosis 1+ (NORMAL); Schistocytes None Seen (NORMAL)
[2022-05-04 08:37] LABS: Acanthocytes 1+ (NORMAL)
[2022-05-04] MEDS: MIDODRINE HCL 2.5 MG TABLET 5 MG FEED TUBE ×3 (09:03→17:20)
[2022-05-04] MEDS: CARBIDOPA/LEVODOPA 25/100 MG TABLET 1 TABLET FEED TUBE ×4 (09:03→22:14)
[2022-05-04] MEDS: PANTOPRAZOLE SODIUM IV 40 MG VIAL IV PUSH ×2 (09:03→22:14)
[2022-05-04] MEDS: ZINC SULFATE 220 MG CAPSULE FEED TUBE (09:03)
[2022-05-04] MEDS: ATORVASTATIN 40 MG TABLET FEED TUBE (09:03)
[2022-05-04] MEDS: ASCORBIC ACID 500 MG TABLET 1000 MG FEED TUBE (09:03)
[2022-05-04] MEDS: LIDOCAINE 5% PATCH 1 PATCH TRANSDERM (09:04)
[2022-05-04] MEDS: ASPIRIN 81 MG CHEWABLE TABLET FEED TUBE (09:04)
[2022-05-04] MEDS: ENOXAPARIN 40 MG/0.4 ML SYRINGE SUB-Q (09:04)
[2022-05-04] MEDS: CHOLECALCIFEROL 1,000 UNITS TABLET 1000 UNITS FEED TUBE (09:04)
--- NOTE | 2022-05-04 11:46 | PC.NURSE ---
Patient orthostatic with therapy and returned to bed. See vital signs.
--- NOTE | 2022-05-04 14:27 | PM.IMPN ---
Progress Note: A&P Assessment and Plan (1) Rhabdomyolysis: Qualifiers: Rhabdomyolysis type: non-traumatic Qualified Code(s): M62.82 - Rhabdomyolysis Code(s): M62.82 - Rhabdomyolysis Status: Acute Assessment and Plan: Patient presented to the emergency department after being found on the ground for an unknown length of time. Patient was reportedly found by his neighbor and was covered in stool and urine at that time. 2/2 traumatic rhabdomyolysis On admission CK was 5386. Trend CK levels and daily chemistry to monitor renal function LFTs slightly increased. Abd US negative for liver disease. AST, ALT mildly elevated and likely secondary to tissue hypoxia from acute illness. CK 5382 on admission. Trend CK daily. Continue IV fluids. Monitor strict I/Os. Renal function stable. Hold statin. Resume when LFTs improved. 05/02/22 Patient's family requesting transfer to [facility]. Called [facility] transfer line and they are not not available to accept patients, currently wait list is 3 week wait. Called [facility] and he is considering signing out AMA. 05/07 continue to monitor CK level. Slowly improving (2) Pneumonia: Code(s): J18.9 - Pneumonia, unspecified organism Status: Acute Assessment and Plan: Speech therapy evaluation due to parkinson's diagnosis. Consulted and recommended MBS. Per MBS results, recommendations include no oral intake due to silent aspirations. ST will follow. Hold p.o. medications until cleared by speech therapy Plan to repeat CXR on 04/27/2022 due to aspiration. CXR Impression: interval development of bibasilar airspace disease, compatible with pneumonia patient started on Unasyn 3 g Q6 Dietary consult --dietary recommended [facility] Family and patient were on board with the insertion of the NG tube. Dietary will be monitoring and following this patient. 04/28/2022 NG tube placement successful, confirmed by x-ray. 05/02/22 Repeat chest x-ray on 05/02/2022 revealed pneumonia and left lower lobe. Patient unable to be re-evaluated by speech due to mental status Continue IV antibiotics 05/04/2022 chest x-ray reviewed. Tiny apical pneumothorax noted. Will get CT chest to further evaluate. Will need to monitor for any further respiratory decompensation currently on room air. Recheck and monitor chest x-ray in a.m. (3) Enteritis: Code(s): K52.9 - Noninfective gastroenteritis and colitis, unspecified Status: Acute Assessment and Plan: As noted above patient was found covered in stool by his neighbor. He endorses loose stool for approximately 1 week. He denies known recent antibiotic use. CT abdomen and pelvis suggestive of enterocolitis. Pt did have radiation therapy prior to ED presentation. C. Diff Negative Stool Culture revealed Salmonella species; sensitivity to ampicillin Ova and parasites pending. Blood cultures negative Continue IV fluids and supportive care. Loose stools have improved. Pt started on Rocephin 2 g for salmonella positive stool. Imodium in Banat[place] discontinued On 04/28 Rocephin dc due to resistance Unasyn started to treat both salmonella and aspiration pneumonia Patient has had some diarrhea in the last 24 hours. Not sure if this is Salmonella or COVID related. Continue treatment Salmonella also noted in his blood culture. Repeat blood culture has been ordered and negative so far. Currently on IV ciprofloxacin for salmonella treatment (4) COVID: Code(s): U07.1 - COVID-19 Status: Acute Assessment and Plan: Patient spiked a 103.8 fever at 10:24 p.m. 05/01/2022 Patient's repeat chest x-ray revealed left lower lobe pneumonia Repeat blood cultures pending ABG revealed respiratory alkalosis Repeat urine revealed 11-20 rbc's and 4-6 wbc's-not concerning for infection Patient tested COVID positive RSV, influenza A and B negative Continue IV Tylenol as an antipyretic and analgesic Isolation precaut
[2022-05-04 15:18] LABS: Glucose Point of Care 240 mg/dl (65-105)
[2022-05-04] MEDS: ACETAMINOPHEN ELIXIR 325 MG/10.15 ML UDC 650 MG FEED TUBE (20:15)
[2022-05-04] MEDS: MELATONIN 3 MG TABLET FEED TUBE (20:19)
[2022-05-04] MEDS: OLANZapine 10 MG INJ VIAL 5 MG IM (21:03)
[2022-05-05] VITALS: PULSE 73
[2022-05-05 00:19] LABS: Glucose Point of Care 212 mg/dl (65-105)
[2022-05-05] MEDS: CIPROFLOXACIN 400 MG/D5W 200ML 200 ML 200 MG IVPB (02:18)
[2022-05-05 04:00] VITALS: PULSE 86
[2022-05-05 05:18] VITALS: BP 101/68; PULSE 84; RESP 20; TEMP 36.8; O2SAT 98
[2022-05-05 05:59] LABS: Basophils Percent Auto 0.1 % (0.2-1.2); Hematocrit 36.6 % (42.0-52.0); Hemoglobin 12.4 g/dL (14.0-18.0); Immature Granulocyte Absolute 0.11 K/mm3 (0.00-0.031); Immature Granulocyte Percent A 0.7 % (0-0.5); Lymphocytes Absolute Auto 0.46 K/mm3 (0.9-3.2); Lymphocytes Percent Auto 3.1 % (18.3-44.2); Mean Corpuscular HGB Conc 33.9 g/dl (32-36); Mean Corpuscular Hemoglobin 29.9 pg (26-34); Mean Corpuscular Volume 88.2 fl (80-100); Mean Platelet Volume 11.5 fl (7.4-10.4); Monocytes Absolute Auto 1.3 K/mm3 (0.1-0.6); Monocytes Percent Auto 8.7 % (2.6-8.5); Neutrophils Percent Auto 87.4 % (45.5-73.1); Platelet Count Result 344 k/mm3 (150-375); Red Blood Count 4.15 M/mm3 (4.6-6.20); Red Cell Distribution Width 14.1 % (11.5-14.5); White Blood Count 14.9 K/mm3 (4.5-10.0)
[2022-05-05 06:16] LABS: INR 1.2; Prothrombin Time 14.4 Seconds (11.1-14.7)
[2022-05-05 06:40] LABS: Creatine Kinase 362 U/L (55-170)
[2022-05-05 06:41] LABS: Alanine Aminotransferase 293 U/L (6-50); Albumin Level 3.2 g/dL (3.5-5.1); Alkaline Phosphatase 100 U/L (38-126); Anion Gap 5 mmol/L (8-16); Aspartate Amino Transferase 586 U/L (17-59); Bilirubin,Total 0.9 mg/dL (0.2-1.3); Blood Urea Nitrogen 33 mg/dL (9-20); Calcium 8.2 mg/dL (8.4-10.2); Carbon Dioxide 28 mmol/L (22-30); Chloride 95 mmol/L (98-107); Estimated CRCL calculation 76 ml/min; Estimated Glomerular Filt Rate > 60; Glucose 200 mg/dL (65-110); Magnesium 2.4 mg/dL (1.6-2.3); Potassium 4.9 mmol/L (3.4-5.0); Sodium 128 mmol/L (137-145)
[2022-05-05 06:42] LABS: Glucose Point of Care 185 mg/dl (65-105)
[2022-05-05 08:00] VITALS: PULSE 77
--- NOTE | 2022-05-05 09:30 | PCOTNOTE ---
Per RN, patient's family going to transfer patient to another facility AMA. Patient not seen for OT.
--- NOTE | 2022-05-05 10:06 | PC.NURSE ---
Family is going to sign patient out AMA. Dr. Martinez notified at 0850 and he came to the unit and spoke with family at 0927. Saud Nguyen notified at 0900. Emily Godinez RN charge nurse notified. Family did not want any other medications or treatments this morning. Dr. Martinez aware. The ambulance service is scheduled for 1130.
--- NOTE | 2022-05-05 16:39 | PM.DS ---
DS: Admitting Diagnosis Discharge Date 05/05/22 Admitting Diagnosis fall with found on the ground DS: Discharge Diagnosis Discharge Diagnosis (1) Rhabdomyolysis: Qualifiers: Rhabdomyolysis type: non-traumatic Qualified Code(s): M62.82 - Rhabdomyolysis Code(s): M62.82 - Rhabdomyolysis Status: Acute (2) Pneumonia: Code(s): J18.9 - Pneumonia, unspecified organism Status: Acute (3) Enteritis: Code(s): K52.9 - Noninfective gastroenteritis and colitis, unspecified Status: Acute (4) COVID: Code(s): U07.1 - COVID-19 Status: Acute (5) Fall: Qualifiers: Encounter type: initial encounter Qualified Code(s): W19.XXXA - Unspecified fall, initial encounter Code(s): W19.XXXA - Unspecified fall, initial encounter Status: Acute (6) Acute UTI: Code(s): N39.0 - Urinary tract infection, site not specified Status: Acute (7) Elevated LFTs: Code(s): R79.89 - Other specified abnormal findings of blood chemistry Status: Acute (8) History of Parkinson's disease: Code(s): Z86.69 - Personal history of other diseases of the nervous system and sense organs Status: Chronic (9) History of hyperlipidemia: Code(s): Z86.39 - Personal history of other endocrine, nutritional and metabolic disease Status: Chronic (10) Stroke: Qualifiers: CVA mechanism: unspecified Qualified Code(s): I63.9 - Cerebral infarction, unspecified Code(s): I63.9 - Cerebral infarction, unspecified Status: Chronic (11) Hypokalemia: Code(s): E87.6 - Hypokalemia Status: Acute (12) Anemia: Code(s): D64.9 - Anemia, unspecified Status: Acute (13) Bacteremia: Code(s): R78.81 - Bacteremia Status: Acute DS: Summary Hospital Course Hospital Course: # fall / found on the floor : # Rhabdomyolysis: Patient presented to the emergency department after being found on the ground for an unknown length of time.?Patient was reportedly found by his neighbor and was covered in stool and urine at that time. 2/2 traumatic rhabdomyolysis On admission CK was 5386. Trend CK levels and daily chemistry to monitor renal function and continues to improve LFTs slightly increased. Abd US negative for liver disease. AST, ALT mildly elevated and likely secondary to tissue hypoxia from acute illness. CK 5382 on admission. Trend CK daily. Monitor strict I/Os. Renal function stable. Hold statin. Resume when LFTs improved. # left lower lobe pneumonia: Does have underlying Parkinson's disease and suspected aspiration related. MBS was done which showed silent aspiration. diet was changed to NPO and NG tube was placed and tube feed was started. For his aspiration pneumonia he was started on Unasyn. this was switched to imipenem and vancomycin with non improvement in appearance of new small apical pneumothorax. # small apical pneumothorax: Unclear etiology probably from underlying pneumonia on the left lower lobe. Continue broad-spectrum antibiotic. CT chest done similar findings and repeat chest x-ray with stable size pneumothorax. # enteritis: As noted above patient was found covered in stool by his neighbor.? He endorses loose stool for approximately 1 week.? He denies known recent antibiotic use.? CT abdomen and pelvis suggestive of enterocolitis. Pt did have radiation therapy prior to ED presentation. C. Diff Negative Stool Culture revealed Salmonella species; sensitivity to ampicillin Ova and parasites pending. Blood cultures negative Continue IV fluids and supportive care. Loose stools have improved. Pt started on Rocephin 2 g for salmonella positive stool. Which was later switched to ciprofloxacin Salmonella also noted in his blood culture done on ..? Repeat blood culture has been ordered and negative so far. Currently on IV ciprofloxacin for salmonella treatment # COVID-19: Griselda
== END 2022-05-05 13:06 | disposition left against medical advice (07) | DRG 371 ==
LOC: ANHED 04-23 03:03 → ANH2MED 04-23 03:36
PROVIDERS: Internal Medicine; Internal Medicine Critical Care Medicine; Nurse Practitioner Family; Physician Assistant; Admitting Provider Internal Medicine; Emergency Provider Emergency Medicine; PCP Family Medicine; Visit Provider Internal Medicine
DX: A02.0 Salmonella enteritis (principal); J69.0 Pneumonitis due to inhalation of food and vomit; U07.1 COVID-19; N39.0 Urinary tract infection, site not specified; E87.3 Alkalosis; J93.9 Pneumothorax, unspecified; T79.6XXA Traumatic ischemia of muscle, initial encounter; G20 Parkinson's disease; R79.89 Other specified abnormal findings of blood chemistry; E78.5 Hyperlipidemia, unspecified; Z86.73 Personal history of transient ischemic attack (TIA), and cerebral infarction without residual deficits; E87.6 Hypokalemia; D64.9 Anemia, unspecified; Z20.822 Contact with and (suspected) exposure to COVID-19; Z79.82 Long term (current) use of aspirin; Z79.899 Other long term (current) drug therapy; W19.XXXA Unspecified fall, initial encounter
CPT/HCPCS: 36415; 36600; 51701; 70450; 70470; 70486; 70553; 71045; 71250; 72125; 73030; 73521; 74176; 74177; 80053; 80061; 81001; 82274; 82306; 82550; 82607; 82728; 82746; 82805; 82948; 83540; 83550; 83605; 83735; 84100; 84443; 84466; 85025; 85027; 85055; 85610; 85730; 86140; 87040; 87045; 87077; 87081; 87086; 87177; 87186; 87209; 87269; 87272; 87427; 87493; 87636; 87637; 89055; 92526; 92610; 92611; 93005; 93306; 95816; 96361; 96365; 96367; 97110; 97162; 97166; 97530; 97535; 99285; A9270; A9577; C9113; G0378; J0131; J0248; J0295; J0696; J0743; J0744; J1100; J1650; J3370; J3480; J7030; J7040; Q9967; U0003; U0005